=== PATIENT | female | born 1995 | race Two or more races ===

== ENCOUNTER 2016-11-16 12:14 | Outpatient (CLI) | payer SELFPAY ==
[2016-11-16 13:24] LABS: APPEARANCE,URINE CLEAR; BILIRUBIN,URINE NEGATIVE (NEGATIVE); GLUCOSE, URINE NEGATIVE (NEGATIVE); KETONES,URINE NEGATIVE (NEGATIVE); LEUKOCYTE ESTERASE,URINE NEGATIVE (NEGATIVE); NITRITE,URINE NEGATIVE (NEGATIVE); PROTEIN,URINE NEGATIVE (NEGATIVE); URINE SPECIFIC GRAVITY 1.004; UROBILINOGEN,URINE NEGATIVE mg/dL (<2.0)
[2016-11-16 13:26] LABS: AMNISURE (ROM) NEGATIVE (NEGATIVE)
[2016-11-16 13:40] LABS: URINE BARBITURATES SCREEN NEGATIVE; URINE METHADONE SCREEN NEGATIVE; URINE PHENCYCLIDINE SCREEN NEGATIVE
== END 2016-11-16 13:40 | disposition home or self-care (01) ==
LOC: LC 12:14
PROVIDERS: ATTEND Obstetrics & Gynecology
PROC: 4A1HXCZ Monitoring of Products of Conception, Cardiac Rate, External Approach (ICD-10-PCS; principal; 2016-11-16)
DX: O47.02 False labor before 37 completed weeks of gestation, second trimester (principal); O98.812 Other maternal infectious and parasitic diseases complicating pregnancy, second trimester; B37.9 Candidiasis, unspecified; Z3A.27 27 weeks gestation of pregnancy
CPT/HCPCS: 59899; 84112; 87210; 81001; 80307; Q0114

== ENCOUNTER 2017-01-29 12:30 | Outpatient (CLI) | payer MEDICAID ==
[2017-01-29 13:26] LABS: APPEARANCE,URINE CLEAR; BILIRUBIN,URINE NEGATIVE (NEGATIVE); GLUCOSE, URINE NEGATIVE (NEGATIVE); KETONES,URINE NEGATIVE (NEGATIVE); LEUKOCYTE ESTERASE,URINE NEGATIVE (NEGATIVE); NITRITE,URINE NEGATIVE (NEGATIVE); PROTEIN,URINE NEGATIVE (NEGATIVE); URINE SPECIFIC GRAVITY 1.008; UROBILINOGEN,URINE NEGATIVE mg/dL (<2.0)
[2017-01-29 13:50] LABS: URINE BARBITURATES SCREEN NEGATIVE; URINE METHADONE SCREEN NEGATIVE; URINE OPIATES LOW NEGATIVE; URINE PHENCYCLIDINE SCREEN NEGATIVE
--- NOTE | 2017-01-29 15:16 | Non Stress Test Report ---
Non Stress Test Datetime Report Generated by CPN: 01/29/2017 15:16 DEMOGRAPHIC EGA NST: 37.4 INDICATION Indication for Study: Other Indication for Study (NST) Other: Labor check MONITORING Monitor Explained: Monitor Explained; Test Explained; Patient Verbalized Understanding Time on Monitor: 01/29/2017 14:28 Time off Monitor: 01/29/2017 15:05 NST Duration: 37 NST INTERVENTIONS NST Interventions: PO Hydration Physician Notified NST: Dr. Cabrera BABY A: [id number] BABY A Movement : Present Contraction Frequency : Occasional FHR Baseline : 130 Accelerations : 15X15 Decelerations : None Variability : Moderate 6-25bpm NST Review: Meets Criteria for Reactive NST NST Review and Verified By : Arnol Zheng RN NST Results: Reactive NST REPORT Report Trigger: Send Report
--- NOTE | 2017-02-04 10:36 | L&D General Admission ---
General Admit Datetime Report Generated by CPN: 02/04/2017 10:36 INFORMATION Patient Age: 21 (11/16/2016 12:14:QS system process) EDC: 02/15/2017 00:00 (11/16/2016 12:45:Garett Mansfield RN) : 2 (11/16/2016 12:45:Vandana Epps RN) Para: 1 (11/16/2016 12:45:Vandana Epps RN) Term: 1 (11/16/2016 12:45:Vandana Epps RN) : 0 (11/16/2016 12:45:Vandana Epps RN) Spontaneous Abortions: 0 (11/16/2016 12:45:Vandana Epps RN) Induced Abortions: 0 (11/16/2016 12:45:Vandana Epps RN) Livin (11/16/2016 12:45:Vandana Epps RN) Cesareans: 0 (11/16/2016 12:45:Vandana Epps RN) VBACs: 0 (11/16/2016 12:45:Vandana Epps RN) Ectopic: 0 (11/16/2016 12:45:Vandana Epps RN) Multiple Births: 0 (11/16/2016 12:45:Vandana Epps RN) Baby, Number in Womb: 1 (11/16/2016 12:45:Vandana Epps RN) CARE Primary Compound Worker: [facility] (11/16/2016 12:45:Garett Mansfield RN) ALLERGIES Medication Allergy: No (11/16/2016 12:45:Garett Mansfield RN) Medication Allergies: No Known Allergies (11/16/2016) (11/16/2016 12:45:QS system process) Medication Allergies: No Known Allergies (05/25/2015) (11/16/2016 12:14:QS system process) Latex Allergy: No Latex Allergies (11/16/2016 12:45:Garett Mansfield RN) Food Allergies: None (11/16/2016 12:45:Vandana Epps RN) Environmental Allergies: None (11/16/2016 12:45:Vandana Epps RN) COMMUNICATION Primary Language: Syrian (11/16/2016 12:45:Garett Mansfield RN) Medical Tx Preferred Language: Syrian (11/16/2016 12:45:Vandana Epps RN) Citizen Of [place] Communication Ability: No understanding, CHARGE ENTRY SPECIALIST needed (11/16/2016 12:45:Vandana pEps RN) Communication Barrier(s): Language barrier (11/16/2016 12:45:Vandana Epps RN) DEMOGRAPHICS Address: [address] [place] [address] (11/16/2016 12:14:QS system process) Zipcode: [id number] (11/16/2016 12:14:QS system process) Home (11/16/2016 12:14:QS system process) SSN: [id number] (11/16/2016 12:14:QS system process) Next of Kin Name: NUBIA LUCAS (11/16/2016 12:14:QS system process) Next of Kin (11/16/2016 12:14:QS system process) Next of Kin Relationship: OR (11/16/2016 12:14:QS system process) Date of : 1995 (11/16/2016 12:14:QS system process) Marital Status: Single (11/16/2016 12:14:QS system process) Sex: Female (11/16/2016 12:14:QS system process) Race: Other (11/16/2016 12:14:QS system process) Ethnicity: or (11/16/2016 12:14:QS system process) Church: None (11/16/2016 12:14:QS system process) DRUG AND ALCOHOL USE Alcohol: No (11/16/2016 12:45:Vandana Epps RN) Cigarettes: Never Smoker. [id number] (11/16/2016 12:45:Vandana Epps RN) Marijuana: No (11/16/2016 12:45:Vandana Epps RN) Cocaine: No (11/16/2016 12:45:Vandana Epps RN) Other Illicit Drugs: No (11/16/2016 12:45:Vandana Epps RN) VACCINE HISTORY Influenza Vaccine: Yes (11/16/2016 12:45:Vandana Epps RN) Pneumococcal Vaccine: No (11/16/2016 12:45:Vandana Epps RN) Tetanus Vaccine: Uncertain (11/16/2016 12:45:Vandana Epps RN) Tdap Vaccine: Uncertain (11/16/2016 12:45:Vandana Epps RN) Hepatitis B Vaccine: Uncertain (11/16/2016 12:45:Vandana Epps RN) [place] Worker: [facility] (11/16/2016 12:45:Vandana Epps RN) Feeding Preference: Both (11/16/2016 12:45:Vandana Epps RN) Benefit of Breast Feed Discussed: Yes (11/16/2016 12:45:Vandana Epps RN) Circumcision: No (11/16/2016 12:45:Vandana Epps RN) Classes Attended: No (11/16/2016 12:45:Vandana Epps RN) Tubal Ligation: No (11/16/2016 12:45:Vandana Epps RN) Tubal Authorization Signed: N/A (11/16/2016 12:45:Vandana Epps RN) Consent: N/A (11/16/2016 12:45:Vandana Epps RN) Consent Signed: N/A (11/16/2016 12:45:Vandana Epps RN) Pain Management Plans: Epidural (11/16/2016 12:45:Vandana Epps RN) Plans for Labor and Delivery: None (11/16/2016 12:45:Vandana Epps RN) Support Person: Michel Shannon (11/16/2016 12:45:Vandana Epps RN) Support Person Relationship: Significant Other (11/16/2016 12:45:Vandana Epps RN) Cultural/Spritual Practice: No (11/16/2016 12:45:Vandana Epps RN) Spir/Cult Dietary Needs: No (11/16/2016 12:45:Vandana Epps RN) LIVING SITUATION/DISCHARGE PLAN Living Arrangements: House (11/16/2016 12:45:Vandana Epps RN) Adequate Access to:: Electric; Heat; Refrigeration; Plumbing/Running water; Phone; Transportation (11/16/2016 12:45:Vandana Epps RN) WIC Program: Yes (11/16/2016 12:45:Vandana Epps RN) Discharge Electronic Engineering Draftsperson Person: Michel Shannon (11/16/2016 12:45:Vandana Epps RN) Person to Help after Discharge: Michel Shannon (11/16/2016 12:45:Vandana Epps RN) Currently Using Commun Resources: Yes (11/16/2016 12:45:Vandana Epps RN) Specify Current Resource Used: Medicaid (11/16/2016 12:45:Vandana Epps RN) Outside Agency/Lost Charge Card Clerk: Yes (11/16/2016 12:45:Vandana Epps RN) Specify Agency/ Lost Charge Card Clerk: unsure (11/16/2016 12:45:Vandana Epps RN) Car Seat for Discharge: Yes (11/16/2016 12:45:Vandana Epps RN) Adoption Requested: No (11/16/2016 12:45:Vandana Epps RN) Pt Contact w/infant Post : N/A (11/16/2016 12:45:Vandana Epps RN) LABS Blood Type: B Positive (11/16/2016 12:45:Vandana Epps RN) Gonorrhea: Negative (11/16/2016 12:45:Vandana Epps RN) Chlamydia: Negative (11/16/2016 12:45:Vandana Epps RN) RPR/VDRL: Nonreactive (11/16/2016 12:45:Vandana Epps RN) HIV Exposure Test: Negative (11/16/2016 12:45:Vandana Epps RN) Hepatitis B: Negative (11/16/2016 12:45:Vandana Epps RN) Rubella: Immune (11/16/2016 12:45:Vandana Epps RN) Varicella: Non Susceptible (11/16/2016 12:45:Vandana Epps RN) OB/PREVIOUS HISTORY History of Previous : No (11/16/2016 12:45:Vandana Epps RN) History of Gestational Diabetes: No (11/16/2016 12:45:Vandana Epps RN) History of PIH: No (11/16/2016 12:45:Vandana Epps RN) History of Incompetent Cervix: No (11/16/2016 12:45:Vandana Epps RN) History of Placenta Previa/Abrup: No (11/16/2016 12:45:Vandana Epps RN) History of Macrosomia: No (11/16/2016 12:45:Vandana Epps RN) History of IUGR: No (11/16/2016 12:45:Vandana Epps RN) History of Hemorrhage: No (11/16/2016 12:45:Vandana Epps RN) History of Loss/Stillborn: Unknown (11/16/2016 12:45:Vandana Epps RN) History of : No (11/16/2016 12:45:Vandana Epps RN) History of D (Rh) Sensitization: No (11/16/2016 12:45:Vandana Epps RN) History Recurrent Loss/Stillborn: Unknown (11/16/2016 12:45:Vandana Epps RN) History Depression/PP Depression: No (11/16/2016 12:45:Vandana Epps RN) History of Uterine Anomaly/TERELL: No (11/16/2016 12:45:Vandana Epps RN) History of Infertility: No (11/16/2016 12:45:Vandana Epps RN) History of ART Treatment: No (11/16/2016 12:45:Vandana Epps RN) History of TERELL: No (11/16/2016 12:45:Vandana Epps RN) MEDICAL HISTORY Med Hx Diabetes: No (11/16/2016 12:45:Vandana Epps RN) Med Hx Hypertension: No (11/16/2016 12:45:Vandana Epps RN) Med Hx Heart Disease: No (11/16/2016 12:45:Vandana Epps RN) Med Hx Autoimmune Disorder: No (11/16/2016 12:45:Vandana Epps RN) Med Hx Kidney Disease/UTI: No (11/16/2016 12:45:Vandana Epps RN) Med Hx Neurologic/Epilepsy: No (11/16/2016 12:45:Vandana Epps RN) Med Hx Psychiatric Disorders: No (11/16/2016 12:45:Vandana Epps RN) Med Hx Hepatitis/Liver Disease: No (11/16/2016 12:45:Vandana Epps RN) Med Hx Varicosities/Phlebitis: No (11/16/2016 12:45:Vandana Epps RN) Med Hx Thyroid Dysfunction: No (11/16/2016 12:45:Vandana Epps RN) Med Hx Trauma/Violence: No (11/16/2016 12:45:Vandana Epps RN) Med Hx Blood Transfusion: No (11/16/2016 12:45:Vandana Epps RN) Med Hx Pulmonary (Asthma,TB): No (11/16/2016 12:45:Vandana Epps RN) Med Hx FLASK CLEANER Surgery: No (11/16/2016 12:45:Vandana Epps RN) Med Hx Hospitalization/Surgery: No (11/16/2016 12:45:Vandana Epps RN) Med Hx Anesthetic Complications: No (11/16/2016 12:45:Vandana Epps RN) Med Hx Abnormal Pap Smear: No (11/16/2016 12:45:Vandana Epps RN) Other Medical Diseases: No (11/16/2016 12:45:Vandana Epps RN) Med Hx Significant Family Hx: No (11/16/2016 12:45:Vandana Epps RN) INFECTIOUS HISTORY Inf Hx Gonorrhea: No (11/16/2016 12:45:Vandana Epps RN) Inf Hx Chlamydia: No (11/16/2016 12:45:Vandana Epps RN) Inf Hx Syphilis: No (11/16/2016 12:45:Vandana Epps RN) Inf Hx HIV/AIDS: No (11/16/2016 12:45:Vandana Epps RN) Inf Hx Human Papilloma Virus: No (11/16/2016 12:45:Vandana Epps RN) Inf Hx Pt/Partner Genital Herpes: No (11/16/2016 12:45:Vandana Epps RN) Inf Hx Tuberculosis/Exposure: No (11/16/2016 12:45:Vandana Epps RN) Inf Hx Hepatitis B,C: No (11/16/2016 12:45:Vandana Epps RN) Inf Hx Rash or Viral Illness: No (11/16/2016 12:45:Vandana Epps RN) GENETIC HISTORY Gen Hx Age >=35 at K[facility]: Unknown (11/16/2016 12:45:Vandana Epps RN) Gen Hx Thalassemia: Unknown (11/16/2016 12:45:Vandana Epps RN) Gen Hx Neural Tube Defect: Unknown (11/16/2016 12:45:Vandana Epps RN) Gen Hx Down's Syndrome: Unknown (11/16/2016 12:45:Vandana Epps RN) Gen Hx Clement-Sachs: Unknown (11/16/2016 12:45:Vandana Epps RN) Gen Hx Lawrence: Unknown (11/16/2016 12:45:Vandana Epps RN) Gen Hx Familial Dysautonomia: Unknown (11/16/2016 12:45:Vandana Epps RN) Gen Hx Sickle Cell Disease/Trait: Unknown (11/16/2016 12:45:Vandana Epps RN) Gen Hx Hemophilia/Blood Disorder: Unknown (11/16/2016 12:45:Vandana Epps RN) Gen Hx Muscular Dystrophy: Unknown (11/16/2016 12:45:Vandana Epps RN) Gen Hx Cystic Fibrosis: Unknown (11/16/2016 12:45:Vadnana Epps RN) Gen Hx Huntingtons Chorea: Unknown (11/16/2016 12:45:Vandana Epps RN) Gen Hx Mental Retardation/Autism: Unknown (11/16/2016 12:45:Vandana Epps RN) Gen Hx Tested for Fragile X: Unknown (11/16/2016 12:45:Vandana Epps RN) Gen Hx Other Inher/Chromosomal: Unknown (11/16/2016 12:45:Vandana Epps RN) Gen Hx Maternal Metabolic DO: Unknown (11/16/2016 12:45:Vandana Epps RN) Gen Hx Pt Father or FOB Defect: Unknown (11/16/2016 12:45:Vandana Epps RN) Gen Hx Other Genetic History: Unknown (11/16/2016 12:45:Vandana Epps RN)
--- NOTE | 2017-02-04 10:36 | L&D Flow Sheet ---
LD Flowsheet Datetime Report Generated by CPN: 02/04/2017 10:36 Datetime: 01/29/2017 15:05 Comments: Monitors removed. Pt. dressing. (Vandana Epps RN) Datetime: 01/29/2017 15:04 Monitor Mode: External; Palpation (Vandana Epps RN) Frequency (min): Occasional (Vandana Epps RN) Quality: Mild (Vandana Epps RN) Duration (sec): 50-70 (Vandana Epps RN) Resting Tone (Palpate): Relaxed (Vandana Epps RN) Monitor Mode: External US (Vandana Epps RN) FHR Baseline Rate : 135 (Vandana Epps RN) Variability: Moderate 6-25 bpm (Vandana Epps RN) Accelerations: 15X15 (Vandana Epps RN) Decelerations: None (Vandana Epps RN) Pain Scale: 3 (Vandana Epps RN) Pain Presence: Intermittent (Vandana Epps RN) Pain Type: Contraction (Vandana Epps RN) Pain Location: Abdomen; Back (Vandana Epps RN) Pain Goal: 0 (Vandana Epps RN) Pain Relief Measures: Comfort Measures (Vandana Epps RN) Patient Care Comments: Pt. discharged home per Dr. Cabrera. See D/C summary. (Vandana Epps RN) Datetime: 01/29/2017 14:59 NBP Sys/Lyssa/Mean (mmHg): 116 (QS system process) : 55 (QS system process) : 79 (QS system process) Pulse: 82 (QS system process) Respirations: 16 (Vandana Epps RN) Datetime: 01/29/2017 14:46 Communication: Provider Orders Received; Call/Page Placed to Provider (Vandana Epps RN) Provider Notified (Name): Dr. Cabrera (Vandana Epps RN) Communication Comments: Notified of fhts, ctx, labs, v/s, SVE. Received orders to D/C home with reactive NST. (Vandana Epps RN) Datetime: 01/29/2017 14:29 NBP Sys/Lyssa/Mean (mmHg): 112 (QS system process) : 58 (QS system process) : 82 (QS system process) Pulse: 73 (QS system process) Dilatation (cm): 4.0 (Vandana Epps RN) Effacement (%): 70 (Vandana Epps RN) Station: -2 (Vandana Epps RN) Exam by: Justyn Epps RN (Vandana Epps RN) Datetime: 01/29/2017 13:25 Monitor Mode: External; Palpation (Vandana Epps RN) Frequency (min): 2-5 (Vandana Epps, RN) Quality: Mild (Vandana Epps, RN) Duration (sec): 60-90 (Vandana Epps, RN) Resting Tone (Palpate): Relaxed (Vandana Epps, RN) Monitor Mode: External US (Vandana Epps, RN) FHR Baseline Rate : 140 (Vandana Epps, RN) Variability: Moderate 6-25 bpm (Vandana Epps, RN) Accelerations: 15X15 (Vandana Epps, RN) Decelerations: None (Vandana Epps, RN) Datetime: 01/29/2017 13:11 Frequency (min): q 5 min (Vandana Epps, RN) Vaginal Bleeding: None (Vandana Epps, RN) Level of Consciousness: Fully Conscious (Vandana Epps, RN) DTR's/Clonus: DTRs 2+; No Clonus (Vandana Epps, RN) Headache: Denies (Vandana Epps, RN) Breath Sounds, Left: Clear and Equal (Vandana Epps, RN) Breath Sounds, Right: Clear and Equal (Vandana Epps, RN) Nausea/Vomiting: Denies (Vandana Epps, RN) RUQ Epigastric Pain: Denies (Vandana Epps, RN) Datetime: 01/29/2017 12:59 Dilatation (cm): 4.0 (Vandana Epps, RN) Effacement (%): 70 (Vandana Epps, RN) Station: -2 (Vandana Epps, RN) Exam by: T. Hill, SN (Vandana Epps, RN) Datetime: 01/29/2017 12:57 NBP Sys/Lyssa/Mean (mmHg): 130 (QS system process) : 76 (QS system process) : 90 (QS system process) Pulse: 83 (QS system process) Respirations: 16 (Vandana Epps, RN) Datetime: 01/29/2017 12:56 Patient Position/Activity: Left Lateral (Vandana Epps, RN) Datetime: 01/29/2017 12:55 Comments: Monitors applied, explained to pt. (Vandana Epps RN) Datetime: 01/29/2017 12:54 Temperature (F): 98.3 (Vandana Epps RN) Datetime: 01/29/2017 12:53 Stage of : Antepartum (Vandana Epps RN) Pain Scale: 3 (Vandana Epps RN) Pain Presence: Intermittent (Vandana Epps RN) Pain Type: Contraction (Vandana Epps RN) Pain Location: Abdomen; Back (Vandana Epps RN) Pain Goal: 0 (Vandana Epps RN) Pain Relief Measures: Comfort Measures (Vandana Epps RN)
--- NOTE | 2017-02-04 10:37 | Antepartum Discharge Summary ---
Antepartum DC Datetime Report Generated by CPN: 02/04/2017 10:37 DIET/ACTIVITY/RESTRICTIONS Diet: Regular (01/29/2017 15:19:Vandana Epps RN) Activity: Normal Activity (01/29/2017 15:19:Vandana Epps, RN) TEACHING/INSTRUCTIONS/REFERRALS Instructions Given To: Patient (01/29/2017 15:19:Vandana Epps RN) Instructions Understood: Patient Verbalized Understanding; Support Person Verbalized Understanding (01/29/2017 15:19:Vandana Epps RN) Referrals: None (01/29/2017 15:19:Vandana Epps RN) Educational Materials- Other: Term labor care notes reviewed. (01/29/2017 15:19:Vandana Epps RN) DISCHARGE INFORMATION Discharged AMA: No (01/29/2017 15:19:Vandana Epps RN) Discharge Date/Time: 01/29/2017 15:10 (01/29/2017 15:19:Vandana Epps RN) Discharged To: Home (01/29/2017 15:19:Vandana Epps RN) Discharge Provider Name: Dr. Cabrera (01/29/2017 15:19:Vandana Epps RN) Accompanied By: mother (01/29/2017 15:19:Vandana Epps RN) Discharge Method: Ambulatory (01/29/2017 15:19:Vandana Epps RN) Condition: Stable (01/29/2017 15:19:Vandana Epps RN) FOLLOW UP INFORMATION Follow Up With: [facility] (01/29/2017 15:19:Vandana Epps RN) Follow Up On: As Scheduled (01/29/2017 15:19:Vandana Epps RN) Follow Up Phone Number: [facility] - (01/29/2017 15:19:Vandana Epps RN)
--- NOTE | 2017-02-04 10:38 | L&D Discharge Summary ---
OB Discharge Summary Datetime Report Generated by CPN: 02/04/2017 10:38 DISCHARGE DIAGNOSIS Diagnosis/Symptoms: False Labor Diagnoses/Symptoms Other: Yeast infection Gestation: 37.5 Number of Babies in Womb: 1 Parity: 1 DIET/ACTIVITY/RESTRICTIONS Diet: Regular Activity: Normal Activity TEACHING/INSTRUCTIONS/REFERRALS Instructions Given To: Patient Instructions Understood: Patient Verbalized Understanding; Support Person Verbalized Understanding Referrals: None Educational Materials- Other: Term labor care notes reviewed. DISCHARGE INFORMATION Discharged AMA: No Discharge Date/Time: 01/29/2017 15:10 Discharged To: Home Discharge Provider Name: Dr. Cabrera Accompanied By: mother Discharge Method: Ambulatory Condition: Stable FOLLOW UP INFORMATION Follow Up With: [facility] Follow Up On: As Scheduled Follow Up Phone Number: [facility] - Comments: Pt discharged home for yeast infection, false labor. Pt ambulates without difficulty, no distress noted, shot examiner agrees with discharge. No complaints, states understanding of s/s to report, when to return to hospital for evaluation, to keep scheduled appointments. GENERAL INSTR-CALL PROVIDER IF: Contractions: Contractions or cramps become more frequent than 8 in one hour or 4 in 20 minutes; Regular painful contractions every 5 minutes or less for one hour. Time your contractions from the beginning of one to the beginning of the next Pressure: Pressure in your vagina or lower abdomen that may feel like the baby is pushing down Period Like Cramps: Period-like cramps or low dull backache that may come and go Cramps/Diarrhea: Abdominal cramps that may be accompanied by diarrhea Gush of Fluid/Blood: Gush of fluid or blood from your vagina (it is normal to have spotting after vaginal exam or intercourse) Vaginal Discharge: Change in the type or amount of vaginal discharge Decreased Movement: Your baby is not moving as much as usual- 4 movements in 1 hour after drinking and resting on side Temperature: Temperature greater than 100.0(F) orally
== END 2017-01-29 15:10 | disposition home or self-care (01) ==
LOC: LC 12:30
PROVIDERS: ATTEND Obstetrics & Gynecology
PROC: 4A1HXCZ Monitoring of Products of Conception, Cardiac Rate, External Approach (ICD-10-PCS; principal; 2017-01-29)
DX: O47.1 False labor at or after 37 completed weeks of gestation (principal); Z3A.37 37 weeks gestation of pregnancy
CPT/HCPCS: 59025; 80307; 81005

== ENCOUNTER 2017-01-30 03:28 | Inpatient (IN) | payer MEDICAID ==
[2017-01-30] MEDS ORDERED: RINGERS SOLUTION,LACTATED 1,000 ML IV PRN (03:55)
[2017-01-30] MEDS ORDERED: LIDOCAINE 1% INJ-PF (10 MG/ML) 30 ML SDV ONE (03:55)
[2017-01-30] MEDS ORDERED: OXYTOCIN/NORMAL SALINE 20 UNIT/1,000 ML RTUINJ ONE (03:55)
[2017-01-30] MEDS ORDERED: MISOPROSTOL 0.2 MG TABLET ONE (03:55)
[2017-01-30 04:01] LABS: APPEARANCE,URINE SLIGHTLY-CLOUDY; BILIRUBIN,URINE NEGATIVE (NEGATIVE); GLUCOSE, URINE NEGATIVE (NEGATIVE); KETONES,URINE 20 mg/dL (NEGATIVE); LEUKOCYTE ESTERASE,URINE NEGATIVE (NEGATIVE); NITRITE,URINE NEGATIVE (NEGATIVE); PROTEIN,URINE NEGATIVE (NEGATIVE); URINE SPECIFIC GRAVITY 1.012; UROBILINOGEN,URINE NEGATIVE mg/dL (<2.0)
[2017-01-30] MEDS ORDERED: OXYTOCIN 10 UNIT/ML VIAL ONE (04:02)
[2017-01-30] MEDS ORDERED: MAGNESIUM HYDROXIDE SUSP 30 ML UDCUP PO PRN (04:06)
[2017-01-30] MEDS ORDERED: BENZOCAINE/MENTHOL AEROSOL SPRAY 56 ML TOP PRN (04:06)
[2017-01-30] MEDS ORDERED: PROMETHAZINE HCL 25 MG SUPP.RECT PR PRN (04:06)
[2017-01-30] MEDS ORDERED: ACETAMINOPHEN 650 MG SUPP.RECT PR PRN (04:06)
[2017-01-30] MEDS ORDERED: PSEUDOEPHEDRINE HCL 30 MG TABLET PO PRN (04:06)
[2017-01-30] MEDS ORDERED: MEASLES,MUMPS&RUBELLA VACC/PF 0.5 ML VIAL SUBCUT PRN (04:06)
[2017-01-30] MEDS ORDERED: ZOLPIDEM TARTRATE 5 MG TABLET PO PRN (04:06)
[2017-01-30] MEDS ORDERED: DIBUCAINE 1% OINTMENT 28 GM TP PRN (04:06)
[2017-01-30] MEDS ORDERED: NA PHOS,M-B/NA PHOS,DI-BA (ADULT) 133 ML ENEMA PR PRN (04:06)
[2017-01-30] MEDS ORDERED: PROMETHAZINE HCL 25 MG TABLET PO PRN (04:06)
[2017-01-30] MEDS ORDERED: ACETAMINOPHEN WITH CODEINE #3 TABLET PO PRN ×2 (04:06)
[2017-01-30] MEDS ORDERED: OXYTOCIN/NORMAL SALINE 1,000 ML IV PRN (04:06)
[2017-01-30] MEDS ORDERED: PROMETHAZINE HCL INJ 25 MG/1 ML VIAL IV PRN (04:06)
[2017-01-30] MEDS ORDERED: GLYCERIN/WITCH HAZEL LEAF 1 EACH MED..PAD TP PRN (04:06)
[2017-01-30] MEDS ORDERED: DIPH/PERTUSS(ACELL)/TETANUS VAC/PF 0.5 ML SYR (>=10YO) IM PRN (04:06)
[2017-01-30] MEDS ORDERED: DIPHENHYDRAMINE HCL 25 MG CAPSULE PO PRN (04:06)
[2017-01-30 04:15] LABS: URINE BARBITURATES SCREEN NEGATIVE; URINE METHADONE SCREEN NEGATIVE; URINE OPIATES LOW NEGATIVE; URINE PHENCYCLIDINE SCREEN NEGATIVE
[2017-01-30 04:16] LABS: ABSOLUTE BASOPHILS # (AUTO) 0.1 10^3/uL (0.0-0.2); ABSOLUTE MONOCYTES (AUTO) 1.1 10^3/uL (0.1-1.4); ABSOLUTE NEUT (AUTO) 13.6 10^3/uL (1.7-8.2); BASOPHILS % (AUTO) 0.4 % (0-2); EOSINOPHILS % (AUTO) 0.2 % (0-6); HEMATOCRIT 33.1 % (36.0-47.0); HEMOGLOBIN 11.4 g/dL (12.0-15.5); HGB HCT DIFFERENCE 1.1; LYMPHOCYTES % (AUTO) 11.9 % (13-45); MEAN CORPUSCULAR HEMOGLOBIN 29.7 pg (27.0-33.4); MEAN CORPUSCULAR HGB CONC 34.4 g/dL (32.0-36.0); MEAN CORPUSCULAR VOLUME 86 fl (80-97); MONOCYTES % (AUTO) 6.5 % (3-13); RED BLOOD COUNT 3.83 10^6/uL (3.72-5.28); RED CELL DISTRIBUTION WIDTH 12.7 % (11.5-14.0); WHITE BLOOD COUNT 16.8 10^3/uL (4.0-10.5)
[2017-01-30] MEDS ORDERED: PENICILLIN G POTASSIUM 5,000,000 UNIT in DEXTROSE 5%-WATER 100 ML IV ONE (04:41)
[2017-01-30] MEDS ORDERED: PENICILLIN G-K 5 MILLION UNIT VIAL ONE (04:41)
[2017-01-30] MEDS ORDERED: BUPIVACAINE HCL 0.25 % INJ/PF (2.5 MG/1 ML) 30 ML VIAL ONE (04:58)
[2017-01-30] MEDS ORDERED: FENTANYL CITRATE INJ/PF 100 MCG/2 ML AMPUL ONE (04:58)
[2017-01-30] MEDS ORDERED: FENTANYL/BUPIVACAINE/NS/PF 200 MCG/100 ML RTUINJ EPI ONE (04:58)
[2017-01-30] MEDS ORDERED: EPHEDRINE SULFATE INJ 50 MG/1 ML AMPULE ONE (04:58)
[2017-01-30] MEDS ORDERED: PHENYLEPHRINE HCL INJ/PF 10 MG/1 ML SDV ONE (04:58)
--- NOTE | 2017-01-30 06:57 | Delivery Summary ---
Del Sum A-C Datetime Report Generated by CPN: 01/30/2017 06:56 ADMISSION DATA Chief Complaint: Uterine Contractions Indication for Induction: Not Applicable Admission Impression: Active Labor Admit Provider Comments: efw 7-8 lbs DELIVERY PERSONNEL Delivery Doctor:: Estelita Cabrera MD Labor and Delivery Nurse:: Arlin Bauer, division controller Nurse:: ABHIJEET Benoit/MERCHANDISING EXECUTION ASSOCIATE: Judi Gardner CNA MATERNAL INFORMATION Delivery Anesthesia: Epidural Medications After Delivery: Pitocin Bolus-Please Comment Meds After Delivery Comment: Pitocin 20 units/1000 mL Maternal Complications: Precipitous Labor (<3hrs) LABOR SUMMARY EDC: 02/15/2017 00:00 No. Babies in Womb: 1 Attempted: No Labor Anesthesia: None LABOR INFORMATION Reason for Induction: Not Applicable Onset of Labor: 01/30/2017 03:49 Complete Dilatation: 01/30/2017 05:29 Oxytocin: N/A Group B Beta Strep: unknown Antibiotics # of Doses: 1 Antibiotics Time of Last Dose: 0451 Name of Antibiotic Given: PCN Steroids Given: None Reason Steroids Not Administered: Not Applicable MEMBRANES Membranes Rupture Method: Artificial Rupture of Membranes: 01/30/2017 05:29 Length of Rupture (hr): 0.37 Amniotic Fluid Color: Clear Amniotic Fluid Amount: Small Amniotic Fluid Odor: Normal STAGES OF LABOR Stage 1 hr: 1 Stage 1 min: 40 Stage 2 hr: 0 Stage 2 min: 22 Stage 3 hr: 0 Stage 3 min: 5 Total Time in Labor hr: 2 Total Time in Labor min: 7 VAGINAL DELIVERY Episiotomy: None Laceration Extension: N/A Laceration Type: None Laceration Repair: Not Applicable Sponge Count Correct: N/A; Vaginal Sweep Performed Sharps Count Correct: N/A CSECTION DELIVERY Primary Indication: N/A Secondary Indication: N/A CSection Incidence: N/A Labor: N/A Elective: N/A CSection Incision: N/A BABY A INFORMATION Infant Delivery Date/Time: 01/30/2017 05:51 Method of Delivery: Vaginal Born in Route : No : N/A Forceps: N/A Vacuum Extraction: N/A Shoulder Dystocia : No PRESENTATION/POSITION BABY A Presentation: Cephalic Cephalic Presentation: Vertex Vertex Position: Right Occipital Anterior Breech Presentation: N/A PLACENTA INFORMATION BABY A Placenta Delivery Time : 01/30/2017 05:56 Placenta Method of Delivery: Spontaneous Placenta Status: Delivered SCORES BABY A Heart Rate 1 min: >100 bpm Resp Effort 1 min: Good Cry Reflex Irritability 1 min: Cough or Sneeze or Pulls Away Muscle Tone 1 min: Active Motion Color 1 min: Blue/Pale Resuscitation Effort 1 min: Tactile Stimulation SCORE 1 MIN: 8 Heart Rate 5 min: >100 bpm Resp Effort 5 min: Good Cry Reflex Irritability 5 min: Cough or Sneeze or Pulls Away Muscle Tone 5 min: Active Motion Color 5 min: Body [place], Extremities Blue Resuscitation Effort 5 min: Tactile Stimulation SCORE 5 MIN: 9 INFANT INFORMATION BABY A Gestational Age at Delivery: 37.5 Gestational Status: Early Term- 37- 38.6 Weeks Outcome : Liveborn Condition : Stable Infant Sex: Male IDENTIFICATION BABY A Infant Verification Date/Time: 01/30/2017 06:03 ID Band Number: [id number] Mother's Name Verified: Yes RN Verifying : Romina Molina RN Additional Verifying Personnel: Bruce LegalZoomJosie RN WEIGHT/LENGTH BABY A Birthweight (gm): 2590 Weight (lb): 5 Infant Weight (oz): 11 Length (in): 18.00 Infant Length (cm): 45.72 CORD INFORMATION BABY A No. Cord Vessels: 3 Nuchal Cord : N/A Cord Blood Taken: Yes-For Storage (Mom's Blood type +) Suction: None ASSESSMENT BABY A Complications: None Physical Findings at Delivery: Within Normal Limits Respirations: Appears Normal Skin to Skin: Yes Skin to Skin Time (min): 45 Cage Operator/ALS Called : No Infant Care By: Gavin Barrera RN Transferred To: Remains with Mother SIGNATURES Signature: with User ID: [email or web address]
[2017-01-30] MEDS ORDERED: AMPICILLIN SOD INJ 1 GM VIAL ONE (07:32)
[2017-01-30] MEDS: IBUPROFEN 800 MG TABLET PO SCH ×3 (07:41→21:42)
[2017-01-30] MEDS: FERROUS SULFATE 325 MG TABLET PO SCH ×2 (07:51→17:24)
[2017-01-30] MEDS ORDERED: FERROUS SULFATE 325 MG TABLET PO ONE (07:52)
--- NOTE | 2017-01-30 08:01 | L&D Flow Sheet ---
LD Flowsheet Datetime Report Generated by CPN: 01/30/2017 08:00 Datetime: 01/30/2017 07:45 NBP Sys/Lyssa/Mean (mmHg): 107 (QS system process) : 58 (QS system process) : 77 (QS system process) Pulse: 56 (QS system process) Datetime: 01/30/2017 07:30 NBP Sys/Lyssa/Mean (mmHg): 110 (QS system process) : 56 (QS system process) : 77 (QS system process) Pulse: 53 (QS system process) Respirations: 16 (Bhavya Chris, RN) Datetime: 01/30/2017 07:18 NBP Sys/Lyssa/Mean (mmHg): 116 (QS system process) : 63 (QS system process) : 78 (QS system process) Pulse: 68 (QS system process) Respirations: 16 (Bhavya Perez, RN) Pain Scale: 0 (Bhavya Perez, RN) Pain Presence: None/Denies (Bhavya Perez, RN) Pain Type: N/A (Bhavya Perez, RN) Datetime: 01/30/2017 07:14 Communication Comments: Report to FrankieJosie Chris RN. Care relinquished at this time. (Arlin Bauer RN) Datetime: 01/30/2017 07:00 Stage of : Recovery (Arlin Ring, RN) Pain Scale: 1 (Arlin Ring, RN) Pain Presence: Intermittent (Arlin Ring, RN) Pain Location: Abdomen (Arlin Ring, RN) Pain Goal: 1 (Arlin Ring, RN) Pain Relief Measures: Comfort Measures (Arlin Ring, RN) Datetime: 01/30/2017 06:45 NBP Sys/Lyssa/Mean (mmHg): 107 (QS system process) : 54 (QS system process) : 78 (QS system process) Pulse: 65 (QS system process) Pain Scale: 1 (Arlin Ring, RN) Pain Presence: Intermittent (Arlin Ring, RN) Pain Type: Cramping (Arlin Ring, RN) Pain Location: Abdomen (Arlin Ring, RN) Pain Goal: 1 (Arlin Ring, RN) Pain Relief Measures: Comfort Measures (Arlin Ring, RN) Datetime: 01/30/2017 06:30 Stage of : Recovery (Arlin Ring, RN) NBP Sys/Lyssa/Mean (mmHg): 115 (QS system process) : 57 (QS system process) : 80 (QS system process) Pulse: 71 (QS system process) Respirations: 18 (Arlin Ring, RN) Temperature (F): 98.9 (Arlin Ring, RN) Temperature (C): 37.2 (QS system process) Temperature Route: Oral (Arlin Ring, RN) Pain Scale: 1 (Arlin Ring, RN) Pain Presence: Intermittent (Arlin Ring, RN) Pain Type: Cramping (Arlin Ring, RN) Pain Location: Abdomen (Arlin Ring, RN) Pain Goal: 1 (Arlin Ring, RN) Pain Relief Measures: Comfort Measures (Arlin Ring, RN) Datetime: 01/30/2017 06:15 Stage of : Recovery (Arlin Ring, RN) NBP Sys/Lyssa/Mean (mmHg): 122 (QS system process) : 58 (QS system process) : 83 (QS system process) Pulse: 77 (QS system process) Pain Scale: 0 (Arlin Ring, RN) Pain Presence: None/Denies (Arlin Ring, RN) Pain Type: N/A (Arlin Ring, RN) Datetime: 01/30/2017 06:01 NBP Sys/Lyssa/Mean (mmHg): 158 (QS system process) : 67 (QS system process) : 96 (QS system process) Pulse: 102 (QS system process) Datetime: 01/30/2017 06:00 Stage of : Recovery (Arlin Ring, RN) Pain Scale: 0 (Arlin Ring, RN) Pain Presence: None/Denies (Arlin Ring, RN) Pain Type: N/A (Arlin Ring, RN) Datetime: 01/30/2017 05:49 Pushing: Coached on Pushing; Urge to Push (Arlin Ring, RN) Pushing Position: Pushing with Contractions; Pushing Lithotomy (Arlin Ring, RN) Pushing Progress: with Pushing (Arlin Ring, RN) Communication: Provider at Bedside (Arlin Ring, RN) Datetime: 01/30/2017 05:47 Pushing: Coached on Pushing; Urge to Push (Arlin Ring, RN) Pushing Position: Pushing with Contractions; Pushing Lithotomy (Arlin Ring, RN) Pushing Progress: Descent with Pushing; Presenting Part Visible (Arlin Ring, RN) Datetime: 01/30/2017 05:45 NBP Sys/Lyssa/Mean (mmHg): 117 (QS system process) : 57 (QS system process) : 82 (QS system process) Pulse: 115 (QS system process) Monitor Mode: External (Ioana Bruce, RN) Frequency (min): 1.5-3 (Ioana Bruce, RN) Quality: Moderate to Strong (Ioana Bruce, RN) Duration (sec): 40-60 (Ioana Bruce, RN) Duration Criteria: Less than Two 120 Second Contractions (Ioana Bruce, RN) Pattern: Normal: <= 5 Contractions in 10 Minutes (Ioana Bruce, RN) Resting Tone (Palpate): Relaxed (Ioana Bruce, RN) Monitor Mode: External US (Ioana Bruce, RN) FHR Baseline Rate : 135 (Ioana Bruce, RN) Variability: Moderate 6-25 bpm (Ioana Bruce, RN) Accelerations: 15X15 (Ioana Bruce, RN) Decelerations: Variable (Ioana Bruce, RN) Comments: broken tracing, pt. pushing, RN remains at bedside adjusting u/s and continuously, monitoring fht (Ioana Bruce, RN) LaborFlag: Antepartum (QS system process) Datetime: 01/30/2017 05:42 IV/Blood Work: New IV Bag Hung (Arlin Ring, RN) Datetime: 01/30/2017 05:38 Pushing: Coached on Pushing; Urge to Push (Arlin Ring, RN) Pushing Position: Pushing with Contractions; Pushing Lithotomy (Arlin Ring, RN) Datetime: 01/30/2017 05:30 NBP Sys/Lyssa/Mean (mmHg): 138 (QS system process) : 74 (QS system process) : 99 (QS system process) Pulse: 92 (QS system process) Monitor Mode: External (Ioana Bruce, RN) Quality: Moderate to Strong (Ioana Bruce, RN) Duration (sec): 40-60 (Ioana Bruce, RN) Duration Criteria: Less than Two 120 Second Contractions (Ioana Bruce, RN) Resting Tone (Palpate): Relaxed (Ioana Bruce, RN) Contraction Comments: pt. sitting for epidural, unable to determine ctn frequency, toco adjusted (Ioana Bruce, RN) Monitor Mode: External US (Ioana Bruce, RN) FHR Baseline Rate : 135 (Ioana Bruce, RN) Variability: Moderate 6-25 bpm (Ioana Bruce, RN) Accelerations: 15X15 (Ioana Bruce, RN) Comments: pt. sitting for epidural, unable to determine decel noted (Ioana Bruce, RN) LaborFlag: Antepartum (QS system process) Datetime: 01/30/2017 05:29 NBP Sys/Lyssa/Mean (mmHg): 125 (QS system process) : 72 (QS system process) : 91 (QS system process) Pulse: 82 (QS system process) Dilatation (cm): 10.0 (Arlin Ring, RN) Effacement (%): 100 (Arlin Ring, RN) Station: 1 (Arlin Ring, RN) Exam by: Dr. Cabrera (Arlin Ring, RN) Membranes Rupture Method: Artificial (Arlin Ring, RN) Amniotic Fluid Color: Clear (Arlin Ring, RN) Amniotic Fluid Amount: Small (Arlin Ring, RN) Amniotic Fluid Odor: Normal (Arlin Ring, RN) Stage 2 Comments: RN to remain at bedside throughout second stage of labor, adjusting u/s and continuously monitoring FHT (Ioana Barrera, ABHIJEET) LaborFlag: Antepartum (QS system process) Datetime: 01/30/2017 05:28 NBP Sys/Lyssa/Mean (mmHg): 125 (QS system process) : 68 (QS system process) : 90 (QS system process) Pulse: 90 (QS system process) LaborFlag: Antepartum (QS system process) Datetime: 01/30/2017 05:27 NBP Sys/Lyssa/Mean (mmHg): 134 (QS system process) : 63 (QS system process) : 91 (QS system process) Pulse: 83 (QS system process) Communication Comments: Dr. Cabrera at bedside. (Arlin Bauer RN) LaborFlag: Antepartum (QS system process) Datetime: 01/30/2017 05:26 NBP Sys/Lyssa/Mean (mmHg): 133 (QS system process) : 68 (QS system process) : 92 (QS system process) Pulse: 83 (QS system process) LaborFlag: Antepartum (QS system process) Datetime: 01/30/2017 05:25 NBP Sys/Lyssa/Mean (mmHg): 141 (QS system process) : 73 (QS system process) : 99 (QS system process) Pulse: 96 (QS system process) LaborFlag: Antepartum (QS system process) Datetime: 01/30/2017 05:24 NBP Sys/Lyssa/Mean (mmHg): 139 (QS system process) : 63 (QS system process) : 90 (QS system process) Pulse: 86 (QS system process) LaborFlag: Antepartum (QS system process) Datetime: 01/30/2017 05:23 NBP Sys/Lyssa/Mean (mmHg): 132 (QS system process) : 64 (QS system process) : 92 (QS system process) Pulse: 89 (QS system process) Monitor Interventions for UA: [place] Adjusted (Ioana Bruce, RN) LaborFlag: Antepartum (QS system process) Datetime: 01/30/2017 05:22 NBP Sys/Lyssa/Mean (mmHg): 138 (QS system process) : 66 (QS system process) : 95 (QS system process) Pulse: 105 (QS system process) LaborFlag: Antepartum (QS system process) Datetime: 01/30/2017 05:21 NBP Sys/Ylssa/Mean (mmHg): 144 (QS system process) : 68 (QS system process) : 97 (QS system process) Pulse: 88 (QS system process) LaborFlag: Antepartum (QS system process) Datetime: 01/30/2017 05:20 NBP Sys/Lyssa/Mean (mmHg): 138 (QS system process) : 63 (QS system process) : 96 (QS system process) Pulse: 86 (QS system process) LaborFlag: Antepartum (QS system process) Datetime: 01/30/2017 05:19 NBP Sys/Lyssa/Mean (mmHg): 142 (QS system process) : 79 (QS system process) : 105 (QS system process) Pulse: 90 (QS system process) Epidural Procedure: Cath Placed (Arlin Ring, RN) LaborFlag: Antepartum (QS system process) Datetime: 01/30/2017 05:18 NBP Sys/Lyssa/Mean (mmHg): 138 (QS system process) : 72 (QS system process) : 99 (QS system process) Pulse: 90 (QS system process) SpO2 (%): 98 (QS system process) LaborFlag: Antepartum (QS system process) Datetime: 01/30/2017 05:16 Epidural Procedure: Test Dose (Arlin Ring, RN) Datetime: 01/30/2017 05:15 Monitor Mode: External (Ioana Bruce, RN) Frequency (min): 4-5 (Ioana Bruce, RN) Quality: Moderate to Strong (Ioana Bruce, RN) Duration (sec): 50-60 (Ioana Bruce, RN) Duration Criteria: Less than Two 120 Second Contractions (Ioana Bruce, RN) Pattern: Normal: <= 5 Contractions in 10 Minutes (Ioana Bruce, RN) Resting Tone (Palpate): Relaxed (Ioana Bruce, RN) Monitor Mode: External US (Ioana Bruce, RN) FHR Baseline Rate : 135 (Ioana Bruce, RN) Variability: Moderate 6-25 bpm (Ioana Bruce, RN) Accelerations: 15X15 (Ioana Bruce, RN) Comments: pt. sitting for epidural, broken tracing, unable to determine if decels noted (Ioana Bruce, RN) Datetime: 01/30/2017 05:13 Pulse: 91 (QS system process) SpO2 (%): 98 (QS system process) LaborFlag: Antepartum (QS system process) Datetime: 01/30/2017 05:10 Procedure Verify: Correct Patient Identity; Correct Side and Site are Marked; Accurate Procedure Consent Form; Agreement on Procedure to be Done; Correct Patient Position; Relevant Images and Results are Properly Labeled and Displayed; Addressed Need to Administer Antibiotics or Fluids for Irrigation; Safety Precautions Based on Patient History or Medication Use (Arlin Bauer, ABHIJEET) Anesthesia Plans: Epidural (Arlin Bauer RN) Epidural Positioning: Sitting (Arlin Bauer RN) Anesthesia Comments: Dr. Crandall at bedside (Arlin Bauer, ABHIJEET) Datetime: 01/30/2017 05:09 Pulse: 81 (QS system process) SpO2 (%): 92 (QS system process) LaborFlag: Antepartum (QS system process) Datetime: 01/30/2017 05:08 Pulse: 92 (QS system process) SpO2 (%): 96 (QS system process) LaborFlag: Antepartum (QS system process) Datetime: 01/30/2017 05:03 Pulse: 75 (QS system process) SpO2 (%): 95 (QS system process) LaborFlag: Antepartum (QS system process) Datetime: 01/30/2017 05:01 Procedure Verify: Correct Patient Identity; Correct Side and Site are Marked; Accurate Procedure Consent Form; Agreement on Procedure to be Done; Correct Patient Position; Relevant Images and Results are Properly Labeled and Displayed; Addressed Need to Administer Antibiotics or Fluids for Irrigation; Safety Precautions Based on Patient History or Medication Use (Arlin Bauer, RN) Anesthesia Plans: Epidural (Alrin Bauer, RN) Epidural Positioning: Sitting (Arlin Bauer, RN) Datetime: 01/30/2017 04:55 Procedure Verify: Correct Patient Identity; Correct Side and Site are Marked; Accurate Procedure Consent Form; Agreement on Procedure to be Done; Relevant Images and Results are Properly Labeled and Displayed; Addressed Need to Administer Antibiotics or Fluids for Irrigation; Safety Precautions Based on Patient History or Medication Use (Arlin Ring, RN) Anesthesia Plans: Epidural (Arlin Ring, RN) Datetime: 01/30/2017 04:51 Antibiotics: Start Antibiotics; Penicillin IV (Units) @ [id number] (Arlin Ring, RN) Datetime: 01/30/2017 04:49 Pain Coping: Requesting Pain Medication or Epidural (Arlin Ring, RN) Datetime: 01/30/2017 04:45 Monitor Mode: External (Ioana Bruce, RN) Frequency (min): 4.5-5.5 (Ioana Bruce, RN) Quality: Moderate to Strong (Ioana Bruce, RN) Duration (sec): 40-60 (Ioana Bruce, RN) Duration Criteria: Less than Two 120 Second Contractions (Ioana Bruce, RN) Pattern: Normal: <= 5 Contractions in 10 Minutes (Ioana Bruce, RN) Resting Tone (Palpate): Relaxed (Ioana Bruce, RN) Monitor Mode: External US (Ioana Bruce, RN) FHR Baseline Rate : 155 (Ioana Bruce, RN) Variability: Moderate 6-25 bpm (Ioana Bruce, RN) Accelerations: Prolonged (Ioana Bruce, RN) Decelerations: None (Ioana Bruce, RN) Datetime: 01/30/2017 04:44 NBP Sys/Lyssa/Mean (mmHg): 144 (QS system process) : 86 (QS system process) : 110 (QS system process) Pulse: 77 (QS system process) LaborFlag: Antepartum (QS system process) Datetime: 01/30/2017 04:15 Monitor Mode: External; Palpation (Ioana Bruce, RN) Frequency (min): 4-5 (Ioana Bruce, RN) Quality: Moderate to Strong (Ioana Bruce, RN) Duration (sec): 50-80 (Ioana Bruce, RN) Duration Criteria: Less than Two 120 Second Contractions (Ioana Bruce, RN) Pattern: Normal: <= 5 Contractions in 10 Minutes (Ioana Bruce, RN) Resting Tone (Palpate): Relaxed (Ioana Bruce, RN) Monitor Mode: External US (Ioana Bruce, RN) FHR Baseline Rate : 125 (Ioana Bruce, RN) Variability: Moderate 6-25 bpm (Ioana Bruce, RN) Accelerations: 15X15 (Ioana Bruce, RN) Comments: broken tracing, unable to determine decel noted (Ioana Bruce, RN) Datetime: 01/30/2017 04:13 NBP Sys/Lyssa/Mean (mmHg): 148 (QS system process) : 84 (QS system process) : 110 (QS system process) Pulse: 90 (QS system process) LaborFlag: Antepartum (QS system process) Datetime: 01/30/2017 04:09 Monitor Interventions for FHR: Ultrasound Adjusted (Ioana Bruce, RN) Comments: RN at bedside adjusting u/s (Ioana Bruce, RN) Datetime: 01/30/2017 04:01 Communication Comments: Dr. Cabrera on unit (Ioana Bruce, RN) Datetime: 01/30/2017 04:00 Frequency (min): every 5 minutes per pt (Arlin Bauer RN) Pain Scale: 5 (Arlin Bauer RN) Pain Presence: Intermittent (Arlin Bauer RN) Pain Type: Contraction (Arlin Bauer, RN) Pain Location: Abdomen; Back; Perineum (Arlin Bauer, RN) Pain Goal: 1 (Arlin Bauer RN) Pain Relief Measures: Comfort Measures (Arlin Bauer, RN) Pain Coping: Breathing Through Contractions; Requesting Pain Medication or Epidural (Arlin Bauer, RN) Pain Assessment Comments: Pt requesting epidural. Bolus started, labs drawn. (Arlin Bauer, RN) Vaginal Bleeding: Normal Show (Arlin Bauer, RN) Level of Consciousness: Fully Conscious (Arlin Bauer, RN) DTR's/Clonus: DTRs 2+; No Clonus (Arlin Bauer, RN) Headache: Denies (Arlin Bauer RN) Breath Sounds, Left: Clear and Equal (Arlin Bauer RN) Breath Sounds, Right: Clear and Equal (Arlin Bauer, RN) Nausea/Vomiting: Denies (Arlin Bauer, RN) RUQ Epigastric Pain: Denies (Arlin Bauer, RN) Instructional Method: Verbal; Patient Instructed; Family/Support Person Instructed; Verbalized Understanding (Arlin Bauer RN) Plan of Care: Plan of Care Discussed (Arlin Bauer RN) Unit Routine: [place] to Room; [place]; Bed; Handwashing; Monitoring; IV Pumps; Safety/Fall Risk Prevention; Bathroom Privileges (Arlin Bauer RN) LaborFlag: Antepartum (QS system process) Datetime: 01/30/2017 03:52 Communication Comments: Dr. Cabrera called and noitifed of pt. arrival, hx, and SVE. Orders received to admit pt. at this time and he will be to the unit shortly (Ioana Barrera RN) Datetime: 01/30/2017 03:49 Dilatation (cm): 9.0 (Arlin Bauer, RN) Effacement (%): 90 (Arlin Bauer RN) Station: 0 (Arlin Bauer RN) Exam by: Fior Bauer RN (Arlin Bauer RN) Membrane Status: Bulging (Arlin Bauer, ABHIJEET) Cervix, Consistency: Soft (Arlin Bauer RN)
[2017-01-30] MEDS ORDERED: PENICILLIN G POTASSIUM 2,500,000 UNIT in DEXTROSE 5%-WATER 50 ML IV SCH (08:42)
--- NOTE | 2017-01-30 09:32 | Admission Physical ---
Datetime Report Generated by CPN: 01/30/2017 09:32 CURRENT ADMISSION Chief Complaint: Uterine Contractions Indication for Induction: Not Applicable Admit Plan: Admit to Unit; Initiate Labor Protocol ALLERGIES Medication Allergies: No Medication Allergies: No Known Allergies (01/30/2017) Medication Allergies: No Known Allergies (11/16/2016) Medication Allergies: No Known Allergies (05/25/2015) Latex: No Latex Allergies Food Allergies: None Environmental Allergies: None OBSTETRICAL HISTORY EDC: 02/15/2017 00:00 : 2 Para: 1 Term: 1 : 0 SAB: 0 IAB: 0 Ectopic: 0 Livin Cesareans: 0 VBACs: 0 Multiple Births: 0 Gestational Diabetes: No Rh Sensitization: No Incompetent Cervix: No TERELL: No Infertility: No ART Treatment: No Uterine Anomaly: No IUGR: No Hx Previous C/S: No Macrosomia: No Hx Loss/Stillborn: Unknown PIH: No Hx : No Placenta Previa/Abruption: No Depression/PP Depression: No PTL/PROM: No Post Hemorrhage: No Current Procedures: Ultrasound Obstetrical History Comments: G1 - at 39 wks (04/2015) G2 - current SEE RECORDS Alcohol: No Marijuana : No Cocaine: No Other Illicit Drugs: No Cigarettes: Never Smoker. [id number] MEDICAL HISTORY Diabetes: No Blood Transfusion: No Pulmonary Disease (Asthma, TB): No Breast Disease: Yes Hypertension: No Reel Blade Bender Furnace Tender Surgery: No Heart Disease: No Hosp/Surgery: No Autoimmune Disorder: No Anesthetic Complications: No Kidney Disease: No Abnormal Pap Smear: No Neuro/Epilepsy: No Psychiatric Disorders: No Other Medical Diseases: No Hepatitis/Liver Disease: No Significant Family History: No Varicosities/Phlebitis: No Trauma/Violence : No Thyroid Dysfunction: No Medical History Comments: Breast biopsy 2014 INFECTIOUS HISTORY Gonorrhea: No Genital Herpes: No Chlamydia: No Tuberculosis: No Syphilis: No Hepatitis: No HIV/AIDS Exposure: No Rash or Viral Illness: No HPV: No PHYSICAL EXAM General: Normal HEENT: Normal Neurologic: Normal Thyroid: Normal Heart: Normal Lungs: Normal Breast: Deferred Back: Normal Abdomen: Normal Genitourinary Exam: Normal Extremities: Normal DTRs: Normal Pelvic Type: Adequate Vital Signs: Reviewed VAGINAL EXAM Dilatation: 9 Effacement: 90 Station: 0 MEMBRANES Pooling: Negative Membranes: Intact FETUS A EGA: 37.5 Presentation: Vertex Admit Comment: efw 7-8 lbs PLANS FOR LABOR AND DELIVERY Labor and Delivery: None Pain Management: Epidural Feeding Preference: Both Benefit of Breast Feed Discussed: Yes Circumcision: No INFORMED CONSENT Signature: with User ID: [email or web address]
[2017-01-30] MEDS: FAMOTIDINE 20 MG TABLET PO SCH ×2 (10:44→21:42)
[2017-01-30] MEDS: PRENATAL VITAMIN W-O CA NO5/FE FUMARATE/FA CAPSULE PO SCH (10:44)
[2017-01-30] MEDS: SENNOSIDES/DOCUSATE 8.6-50 MG 1 EACH TABLET PO SCH (10:44)
[2017-01-30] MEDS: DOCUSATE SODIUM 100 MG CAPSULE PO SCH ×2 (10:45→17:24)
--- NOTE | 2017-01-30 19:00 | L&D Flow Sheet ---
LD Flowsheet Datetime Report Generated by CPN: 01/30/2017 19:00 Datetime: 01/30/2017 07:45 NBP Sys/Lyssa/Mean (mmHg): 107 (QS system process) : 58 (QS system process) : 77 (QS system process) Pulse: 56 (QS system process) Respirations: 16 (Bhavya Chris, RN) Datetime: 01/30/2017 07:30 NBP Sys/Lyssa/Mean (mmHg): 110 (QS system process) : 56 (QS system process) : 77 (QS system process) Pulse: 53 (QS system process) Respirations: 16 (Bhavya Perez, RN) Datetime: 01/30/2017 07:18 NBP Sys/Lyssa/Mean (mmHg): 116 (QS system process) : 63 (QS system process) : 78 (QS system process) Pulse: 68 (QS system process) Respirations: 16 (Bhavya Perez RN) Pain Scale: 0 (Bhavya Perez RN) Pain Presence: None/Denies (Bhavya Perez, RN) Pain Type: N/A (Bhavya Perez, RN) Datetime: 01/30/2017 07:14 Communication Comments: Report to Romina Perez RN. Care relinquished at this time. (Arlin Bauer RN) Datetime: 01/30/2017 07:00 Stage of : Recovery (Arlin Bauer RN) Pain Scale: 1 (Arlin Bauer RN) Pain Presence: Intermittent (Arlin Bauer RN) Pain Location: Abdomen (Arlin Bauer RN) Pain Goal: 1 (Arlin Bauer RN) Pain Relief Measures: Comfort Measures (Arlin Bauer RN)
--- NOTE | 2017-01-31 06:00 | L&D Current Admission ---
Current Admit Datetime Report Generated by CPN: 01/31/2017 06:00 ADMISSION INFORMATION Current Admit Date/Time: 01/30/2017 04:05 (01/29/2017 13:11:Sherrie Molina RN) Reason for Admission: Onset of Labor (01/29/2017 13:11:Sherrie Molina RN) Chief Complaint: Contractions (01/30/2017 04:00:Arlin Bauer RN) Medications During : Vitamin (01/29/2017 13:11:Sherrie Molina RN) EGA per Dates: 37.5 (01/29/2017 13:11:QS system process) Method of Arrival: Wheelchair (01/29/2017 13:11:Sherrie Molina RN) Admitted From: Home (01/29/2017 13:11:Sherrie Molina RN) Reason for Induction: Not Applicable (01/29/2017 13:11:Shrerie Molina RN) Records Available: Yes (01/29/2017 13:11:Sherrie Molina RN) General Admission Information: Reviewed (01/29/2017 13:11:Sherrie Molina RN) General Admission Reviewed By: Romina Molina RN (01/29/2017 13:11:Sherrie Molina RN) BELONGINGS/ADVANCED DIRECTIVES Other Belongings: clothes (01/29/2017 13:11:Sherrie Molina RN) Disposition of Belongings: Kept with Patient (01/29/2017 13:11:Sherrie Molina RN) Advance Direct for Healthcare: No, and Wants No Information (01/29/2017 13:11:Sherrie Molina RN) Durable Power of Key Person: Yes (01/29/2017 13:11:Sherrie Molina RN) Living Will: No (01/29/2017 13:11:Sherrie Molina RN) Organ Donor: No (01/29/2017 13:11:Sherrie Molina RN) Pt Rights Information Given: Yes (01/29/2017 13:11:Sherrie Molina RN) Pt Understands Pt Rights: Yes (01/29/2017 13:11:Sherrie Molina RN) LEARNING ASSESSMENT Knowledge Level: Understands L_D Process; Understands Care Activities; Had Pre-Hospital Education; Understands Diagnosis (01/29/2017 13:11:Ioana Barrera RN) Barriers to Learning: None (01/29/2017 13:11:Ioana Barrera RN) Learning Readiness: Motivated (01/29/2017 13:11:Sherrie Molina RN) Learns Best By: 1 to 1 Instruction (01/29/2017 13:11:Ioana Barrera RN) Learning Needs: Labor and Delivery Process; Pain Management; Symptoms to Report; Treatment Plan; Medication; Diagnosis; Nutrition; Equipment; Care; Community Resources (01/29/2017 13:11:Sherrie Molina RN) DOMESTIC VIOLANCE SCREENING Dom Viol Threatened/Hurt: No (01/29/2017 13:11:Ioana Barrera RN) Hx of Abuse/Neglect past 2yrs: No (01/29/2017 13:11:Ioana Barrera RN) Feel Unsafe Going Home: No (01/29/2017 13:11:Ioana Barrera RN) Addt'l Observ Indicating Abuse: No (01/29/2017 13:11:Ioana Barrera RN) Reason Unable to Complete Screen: N/A, Screen Completed (01/29/2017 13:11:Ioana Barrera RN) Considered Personal Harm/Suicide: No (01/29/2017 13:11:Ioana Barrera RN) NUTRITIONAL/FUNCTIONAL SCREENING Problem with Appetite >5 Days: No (01/29/2017 13:11:Ioana Barrera RN) Chew/Swallow Difficulties: No (01/29/2017 13:11:Ioana Barrera RN) Inappropriate Wt Gain/Loss: No (01/29/2017 13:11:Ioana Barrera RN) Presence Skin Breakdown/Ulcer: No (01/29/2017 13:11:Ioana Barrera RN) Special Diet: No (01/29/2017 13:11:Ioana Barrera RN) Pt Requests [place] [employer] Targeting Supervisor Visit: No (01/29/2017 13:11:Ioana Barrera RN) Hx of Any of the Following?: N/A (01/29/2017 13:11:Ioana Barrera RN) New Diagnosis of: N/A (01/29/2017 13:11:Ioana Barrera RN) Requires Assist w/Ambulation: No (01/29/2017 13:11:Ioana Barrera RN) Uses Assist Device to Ambulate: No (01/29/2017 13:11:Ioana Barrera RN) Pt Requires Help w/ADL's: No (01/29/2017 13:11:Ioana Barrera RN)
--- NOTE | 2017-01-31 06:00 | L&D General Admission ---
General Admit Datetime Report Generated by CPN: 01/31/2017 06:00 INFORMATION Patient Age: 21 (11/16/2016 12:14:QS system process) EDC: 02/15/2017 00:00 (11/16/2016 12:45:Garett Mansfield RN) : 2 (11/16/2016 12:45:Vandana Epps RN) Para: 1 (11/16/2016 12:45:Vandana Epps RN) Term: 1 (11/16/2016 12:45:Vnadana Epps RN) : 0 (11/16/2016 12:45:Vandana Epps RN) Spontaneous Abortions: 0 (11/16/2016 12:45:Vandana Epps RN) Induced Abortions: 0 (11/16/2016 12:45:Vandana Epps RN) Livin (11/16/2016 12:45:Vandana Epps RN) Cesareans: 0 (11/16/2016 12:45:Vandana Epps RN) VBACs: 0 (11/16/2016 12:45:Vandana Epps RN) Ectopic: 0 (11/16/2016 12:45:Vandana Epps RN) Multiple Births: 0 (11/16/2016 12:45:Vandana Epps RN) Baby, Number in Womb: 1 (11/16/2016 12:45:Vandana Epps RN) CARE Primary Hospital Nurse Liaison: [facility] (11/16/2016 12:45:Garett Mansfield RN) Adequate Care: Yes (11/16/2016 12:45:Arlin Bauer RN) Height (in): 63 (01/30/2017 09:31:QS system process) ALLERGIES Medication Allergy: No (11/16/2016 12:45:Garett Mansfield RN) Medication Allergies: No Known Allergies (01/30/2017) (01/30/2017 04:21:QS system process) Latex Allergy: No Latex Allergies (11/16/2016 12:45:Garett Mansfield RN) Food Allergies: None (11/16/2016 12:45:Vandana Epps, RN) Environmental Allergies: None (11/16/2016 12:45:Vandana Epps RN) COMMUNICATION Primary Language: Chinese (11/16/2016 12:45:Garett Mansfield RN) Medical Tx Preferred Language: Chinese (11/16/2016 12:45:Vandana Epps RN) Korean Communication Ability: No understanding, LEAFLET OR NEWSPAPER DELIVERER needed (11/16/2016 12:45:Vandana Epps RN) Communication Barrier(s): Language barrier (11/16/2016 12:45:Vandana Epps RN) DEMOGRAPHICS Address: [place], [address] [address] (11/16/2016 12:14:QS system process) Zipcode: [phone] (11/16/2016 12:14:QS system process) Home (11/16/2016 12:14:QS system process) N: [phone] (11/16/2016 12:14:QS system process) Next of Kin Name: NUBIA JIMENEZVAR (11/16/2016 12:14:QS system process) Next of Kin (11/16/2016 12:14:QS system process) Next of Kin Relationship: OR (11/16/2016 12:14:QS system process) Date of : 1995 (11/16/2016 12:14:QS system process) Marital Status: Single (11/16/2016 12:14:QS system process) Sex: Female (11/16/2016 12:14:QS system process) Race: Other (11/16/2016 12:14:QS system process) Ethnicity: or (11/16/2016 12:14:QS system process) Islam: None (11/16/2016 12:14:QS system process) DRUG AND ALCOHOL USE Alcohol: No (11/16/2016 12:45:Vandana Epps RN) Cigarettes: Never Smoker. [id number] (11/16/2016 12:45:Vandana Epps RN) Marijuana: No (11/16/2016 12:45:Vandana Epps RN) Cocaine: No (11/16/2016 12:45:Vandana Epps RN) Other Illicit Drugs: No (11/16/2016 12:45:Vandana Epps RN) VACCINE HISTORY Influenza Vaccine: Yes (11/16/2016 12:45:Vandana Epps RN) Pneumococcal Vaccine: No (11/16/2016 12:45:Vandana Epps RN) Tetanus Vaccine: Uncertain (11/16/2016 12:45:Vandana Epps RN) Tdap Vaccine: Uncertain (11/16/2016 12:45:Vandana Epps RN) Hepatitis B Vaccine: Uncertain (11/16/2016 12:45:Vandana Epps RN) Absorption And Adsorption Engineer: [facility] (11/16/2016 12:45:Vandana Epps RN) Feeding Preference: Both (11/16/2016 12:45:Vandana Epps RN) Benefit of Breast Feed Discussed: Yes (11/16/2016 12:45:Vandana Epps RN) Circumcision: No (11/16/2016 12:45:Vandana Epps RN) Classes Attended: No (11/16/2016 12:45:Vandana Epps RN) Tubal Ligation: No (11/16/2016 12:45:Vandana Epps RN) Tubal Authorization Signed: N/A (11/16/2016 12:45:Vandana Epps RN) Consent: N/A (11/16/2016 12:45:Vandana Epps RN) Consent Signed: N/A (11/16/2016 12:45:Vandana Epps RN) Pain Management Plans: Epidural (11/16/2016 12:45:Vandana Epps RN) Plans for Labor and Delivery: None (11/16/2016 12:45:Vandana Epps RN) Support Person: Michel Shannon (11/16/2016 12:45:Vandana Epps RN) Support Person Relationship: Significant Other (11/16/2016 12:45:Vandana Epps RN) Cultural/Spritual Practice: No (11/16/2016 12:45:Vandana Epps RN) Spir/Cult Dietary Needs: No (11/16/2016 12:45:Vandana Epps RN) LIVING SITUATION/DISCHARGE PLAN Living Arrangements: House (11/16/2016 12:45:Vandana Epps RN) Adequate Access to:: Electric; Heat; Refrigeration; Plumbing/Running water; Phone; Transportation (11/16/2016 12:45:Vandana Epps RN) WIC Program: Yes (11/16/2016 12:45:Vandana Epps RN) Discharge Farmhand Person: Michel Shannon (11/16/2016 12:45:Vandana Epps RN) Person to Help after Discharge: Michel Shannon (11/16/2016 12:45:Vandana Epps RN) Currently Using Commun Resources: Yes (11/16/2016 12:45:Vandana Epps RN) Specify Current Resource Used: Medicaid (11/16/2016 12:45:Vandana Epps RN) Outside Agency/College Associate: Yes (11/16/2016 12:45:Vandana Epps RN) Specify Agency/ College Associate: unsure (11/16/2016 12:45:Vandana Epps RN) Car Seat for Discharge: Yes (11/16/2016 12:45:Vandana Epps RN) Adoption Requested: No (11/16/2016 12:45:Vandana Epps RN) Pt Contact w/ Post : N/A (11/16/2016 12:45:Vandana Epps RN) LABS Blood Type: B Positive (11/16/2016 12:45:Vandana Epps RN) Hemoglobin: 11.4 L (01/30/2017 04:07:QS system process) Hematocrit: 33.1 L (01/30/2017 04:07:QS system process) MCV: 86 (01/30/2017 04:07:QS system process) Group Beta Strep: unknown (11/16/2016 12:45:Ioana Barrera RN) Gonorrhea: Negative (11/16/2016 12:45:Vandana Epps RN) Chlamydia: Negative (11/16/2016 12:45:Vandana Epps RN) RPR/VDRL: Nonreactive (11/16/2016 12:45:Vandana Epps RN) HIV Exposure Test: Negative (11/16/2016 12:45:Vandana Epps RN) Hepatitis B: Negative (11/16/2016 12:45:Vandana Epps RN) Rubella: Immune (11/16/2016 12:45:Vandana Epps RN) Varicella: Non Susceptible (11/16/2016 12:45:Vandana Epps RN) OB/PREVIOUS HISTORY Previous Procedures: Ultrasound (11/16/2016 12:45:Arlin Bauer RN) Current Procedures: Ultrasound (11/16/2016 12:45:Arlin Bauer RN) History of Previous : No (11/16/2016 12:45:Vandana Epps RN) History of Gestational Diabetes: No (11/16/2016 12:45:Vandana Epps RN) History of PIH: No (11/16/2016 12:45:Vandana Epps RN) History of Incompetent Cervix: No (11/16/2016 12:45:Vandana Epps RN) History of Placenta Previa/Abrup: No (11/16/2016 12:45:Vandana Epps RN) History of Macrosomia: No (11/16/2016 12:45:Vandana Epps RN) History of IUGR: No (11/16/2016 12:45:Vandana Epps RN) History of Hemorrhage: No (11/16/2016 12:45:Vandana Epps RN) History of Loss/Stillborn: Unknown (11/16/2016 12:45:Vandana Epps RN) History of : No (11/16/2016 12:45:Vandana Epps RN) History of D (Rh) Sensitization: No (11/16/2016 12:45:Vandana Epps RN) History Recurrent Loss/Stillborn: Unknown (11/16/2016 12:45:Vandana Epps RN) History Depression/PP Depression: No (11/16/2016 12:45:Vandana Epps RN) History of Uterine Anomaly/TERELL: No (11/16/2016 12:45:Vandana Epps RN) History of Infertility: No (11/16/2016 12:45:Vandana Epps RN) History of ART Treatment: No (11/16/2016 12:45:Vandana Epps RN) History of TERELL: No (11/16/2016 12:45:Vandana Epps RN) Comments Obstetrical History: G1 - at 39 wks (04/2015) G2 - current (11/16/2016 12:45:Arlin Bauer RN) MEDICAL HISTORY Med Hx Diabetes: No (11/16/2016 12:45:Vandana Epps RN) Med Hx Hypertension: No (11/16/2016 12:45:Vandana Epps RN) Med Hx Heart Disease: No (11/16/2016 12:45:Vandana Epps RN) Med Hx Autoimmune Disorder: No (11/16/2016 12:45:Vandana Epps RN) Med Hx Kidney Disease/UTI: No (11/16/2016 12:45:Vandana Epps RN) Med Hx Neurologic/Epilepsy: No (11/16/2016 12:45:Vandana Epps RN) Med Hx Psychiatric Disorders: No (11/16/2016 12:45:Vandana Epps RN) Med Hx Hepatitis/Liver Disease: No (11/16/2016 12:45:Vandana Epps RN) Med Hx Varicosities/Phlebitis: No (11/16/2016 12:45:Vandana Epps RN) Med Hx Thyroid Dysfunction: No (11/16/2016 12:45:Vandana Epps RN) Med Hx Trauma/Violence: No (11/16/2016 12:45:Vandana Epps RN) Med Hx Blood Transfusion: No (11/16/2016 12:45:Vandana Epps RN) Med Hx Pulmonary (Asthma,TB): No (11/16/2016 12:45:Vandana Epps RN) Med Hx Breast: Yes (11/16/2016 12:45:Arlin Bauer RN) Med Hx METALS ANALYST Surgery: No (11/16/2016 12:45:Vandana Epps RN) Med Hx Hospitalization/Surgery: No (11/16/2016 12:45:Vandana Epps RN) Med Hx Anesthetic Complications: No (11/16/2016 12:45:Vandana Epps RN) Med Hx Abnormal Pap Smear: No (11/16/2016 12:45:Vandana Epps RN) Other Medical Diseases: No (11/16/2016 12:45:Vandana Epps RN) Med Hx Significant Family Hx: No (11/16/2016 12:45:Vandana Epps RN) Details of Med/Surg Hx: Breast biopsy 2014 (11/16/2016 12:45:Arlin Bauer RN) INFECTIOUS HISTORY Inf Hx Gonorrhea: No (11/16/2016 12:45:Vandana Epps RN) Inf Hx Chlamydia: No (11/16/2016 12:45:Vandana Epps RN) Inf Hx Syphilis: No (11/16/2016 12:45:Vandana Epps RN) Inf Hx HIV/AIDS: No (11/16/2016 12:45:Vandana Epps RN) Inf Hx Human Papilloma Virus: No (11/16/2016 12:45:Vandana Epps RN) Inf Hx Pt/Partner Genital Herpes: No (11/16/2016 12:45:Vandana Epps RN) Inf Hx Tuberculosis/Exposure: No (11/16/2016 12:45:Vandana Epps RN) Inf Hx Hepatitis B,C: No (11/16/2016 12:45:Vandana Epps RN) Inf Hx Rash or Viral Illness: No (11/16/2016 12:45:Vandana Epps RN) GENETIC HISTORY Gen Hx Age >=35 at [facility]: Unknown (11/16/2016 12:45:Vandana Epps RN) Gen Hx Thalassemia: Unknown (11/16/2016 12:45:Vandana Epps RN) Gen Hx Congenital Heart Defect: Yes (11/16/2016 12:45:Arlin Bauer RN) Gen Hx Neural Tube Defect: Unknown (11/16/2016 12:45:Vandana Epps RN) Gen Hx Down's Syndrome: Unknown (11/16/2016 12:45:Vandana Epps RN) Gen Hx Clement-Sachs: Unknown (11/16/2016 12:45:Vandana Epps RN) Gen Hx Lawrence: Unknown (11/16/2016 12:45:Vandana Epps RN) Gen Hx Familial Dysautonomia: Unknown (11/16/2016 12:45:Vandana Epps RN) Gen Hx Sickle Cell Disease/Trait: Unknown (11/16/2016 12:45:Vandana Epps RN) Gen Hx Hemophilia/Blood Disorder: Unknown (11/16/2016 12:45:Vandana Epps RN) Gen Hx Muscular Dystrophy: Unknown (11/16/2016 12:45:Vandana Epps RN) Gen Hx Cystic Fibrosis: Unknown (11/16/2016 12:45:Vandana Epps RN) Gen Hx Huntingtons Chorea: Unknown (11/16/2016 12:45:Vandana Epps RN) Gen Hx Mental Retardation/Autism: Unknown (11/16/2016 12:45:Vandana Epps RN) Gen Hx Tested for Fragile X: Unknown (11/16/2016 12:45:Vandana Epps RN) Gen Hx Other Inher/Chromosomal: Unknown (11/16/2016 12:45:Vandana Epps RN) Gen Hx Maternal Metabolic DO: Unknown (11/16/2016 12:45:Vandana Epps RN) Gen Hx Pt Father or FOB Defect: Unknown (11/16/2016 12:45:Vandana Epps RN) Gen Hx Other Genetic History: Unknown (11/16/2016 12:45:Vandana Epps RN) Gen Hx Drugs/Meds since LMP: Yes (11/16/2016 12:45:Arlin Bauer RN) Gen Hx Medications: PNV (11/16/2016 12:45:Arlin Bauer RN) Details of Genetic History: Family member with congenital heart defect (11/16/2016 12:45:Arlin Bauer RN)
[2017-01-31] MEDS: IBUPROFEN 800 MG TABLET PO SCH ×3 (06:12→21:04)
--- NOTE | 2017-01-31 06:15 | L&D Care Plan ---
LD CARE PLANS Datetime Report Generated by CPN: 01/31/2017 06:15 Datetime: 01/30/2017 04:04 Pain State: Risk For (Ioana Barrera RN) Related To: Labor and Delivery Process; Surgical Procedure; Complication(s) of ; Disease Process; Treatment and Procedures; Post (Ioana Barrera RN) Goal(s): Patients Pain will be Assessed and Managed; Patient will Verbalize Adequate Relief of Pain or the Ability to [place] with Current Pain (Ioana Barrera RN) Interventions: Assess Pain Severity on Scale of 0 (None) to 5 (Severe); Assess Type, Location and Intensity of Pain Each Time Client Reports Discomfort and Notify Provider if Unusal Pain Develops; Encourage Proper Breathing and Relaxation Techniques; Offer Alternatives Such as Repositioning, Calm Environment, Massages, Diversional Activities, Ice Pack, Splinting, and Ambulation; Administer Analgesics as Ordered; Assist with Epidural Placement as Appropriate; Evaluate Therapeutic Effectiveness of Medication and Treatments (Ioana Barrera RN) Outcome: Patient will Report Absence or Relief of Pain Consistent with Established Pain Goal (Ioana Barrera RN) Status: Ongoing (Ioana Barrera RN) Outcome: Patient will have a Decrease in Signs and Symptoms of Discomfort (Ioana Barrera RN) Status: Ongoing (Ioana Barrera RN) Outcome: Pain will be Controlled During Procedures (Ioana Barrera RN) Status: Ongoing (Ioana Barrera RN) Anxiety State: Risk For (Ioana Barrera RN) Related To: Labor and Delivery Process; Surgical Procedure; Perceived or Actual Threat to ; Fear of Unknown; Situational Crisis; Medical Interventions; Significant Life Event (Ioana Barrera RN) Goal(s): Patient will have Decreased Anxiety and be able to Function at Acceptable Levels (Ioana Barrera RN) Interventions: Assess Verbal and Nonverbal Behavioral Indicators of Anxiety; Assist Patient to Identify and Verbalize Symptoms of Anxiety; Identify and Demonstrate Techniques to Control Anxiety; Assist Patient with Coping Mechanisms to Manage Anxiety; Provide Theraputic Touch for the Patient; Explain to Patient, Using a Calm Reassuring Approach and Nonmedical Terms, All Activities, Procedures, and Concerns; Instruct Patient and Family about Post Discharge Care, Limitations, Symptoms to Report and Resources Available (Ioana Barrera RN) Outcome: Patient will Identify, Verbalize and Demonstrate Techniques to Control Anxiety (Ioana Barrera RN) Status: Ongoing (Ioana Barrera RN) Outcome: Patient's Posture, Facial Expressions, Gestures and Activity Level will Reflect Decreased Anxiety (Ioana Barrera RN) Status: Ongoing (Ioana Barrera RN) Outcome: Patient will Verbalize a Sense of Control and/or Acceptance of the Situation (Ioana Barrera RN) Status: Ongoing (Ioana Barrera RN) Outcome: Patient will Identify and Utilize Support Person (Ioana Barrera RN) Status: Ongoing (Ioana Barrera RN) Knowledge Deficit State: Risk For (Ioana Barrera RN) Related To: Labor and Delivery Process; Surgical Procedures; Treatment and Procedures; Impending Alterations in Family Dynamics; Feeding and Infant Care; Community Resources and Available Support Mechanisms (Ioana Barrera RN) Goal(s): Patient will Accurately Verbalize Understanding of Plan of Care and Treatment; Patient and Family will Accurately Verbalize Understanding of the Disease Process (Ioana Barrera RN) Interventions: Assess Motivation and Willingness of Patient/Family to Learn; Assess Preferred Learning Mode: One to One Instruction, Reading, Videos, Group Discussion or Demonstration; Assess Barriers to Learning: Pain, Emotional State, Language Barrier, Cognitive Impairment, Visual or Hearing Deficits; Assess Patient and Family Knowledge of Disease Process, Medications and Treatment; Discuss Therapy and/or Treatment Options, Describe Rationale Behind Management, Therapy and Treatment Recommendations; Instruct Patient and Family on Signs and Symptoms to Report; Instruct Patient and Family on Medication Effects and Side Effects; Provide Appropriate and Timely Education Using Multiple Techniques; Provide Patient and Family with Support Group Information and Resources; Give Clear and Thorough Explanations and Demonstrations (Ioana Barrera RN) Outcome: Patient and Family will Verbalize Understanding of Condition, Treatment and Signs and Symptoms to Report (Ioana Barrera RN) Status: Ongoing (Ioana Barrera RN) Outcome: Patient will Identify Perceived Learning Needs and Express Motivation to Learn (Ioana Barrera RN) Status: Ongoing (Ioana Barrera RN) Outcome: Patient will Verbalize Understanding of Desired Content, and/or Performs Desired Skill Prior to Discharge (Ioana Barrera RN) Status: Ongoing (Ioana Barrera RN) Infection State: Risk For (Ioana Barrera RN) Related To: Surgical Procedures; Invasive Procedures; Altered Tissue Integrity (Ioana Barrera RN) Goal(s): The Patient will be Free of Infection, Vital Signs Stable and Lab Work within Normal Parameters (Ioana Barrera RN) Interventions: Instruct and Reinforce Proper Handwashing, Hygiene, and Care Techniques to Patient and Family; Monitor Vital Signs; Monitor Patient for the Following Signs of Infection: Fever, Abdominal Tenderness, Unusual Discharge; Monitor Aminiotic Fluid, Urine and Lochia for Color and Odor; Observe Wounds, Incisions and Invasive Line Sites for Redness, Drainage and Edema; Assess IV Sites per Hospital Policy; Monitor Lab and Test Results and Notify Provider of Abnormal Findings; Assess Nutritional Status and Promote Good Nutrition (Ioana Barrera RN) Outcome: Patient will Remain Free of Infection (Ioana Barrera RN) Status: Ongoing (Ioana Barrera RN) Outcome: Infection will be Recognized Early to Allow for Prompt Treatment (Ioana Barrera RN) Status: Ongoing (Ioana Barrera RN) Outcome: Patient will have Vital Signs Within Expected Range (Ioana Barerra RN) Status: Ongoing (Ioana Barrera RN) Fluid Volume State: Risk For (Ioana Barrera RN) Related To: Surgical Procedures; Hemorrhage; Disease Process; Anesthesia; Altered Renal Function (Ioana Barrera RN) Goal(s): Patient will Achieve and Maintain a Balanced Fluid Volume Status; Hemodynamically Stable (Ioana Barrera RN) Interventions: Monitor Vital Signs; Auscultate Breath Sounds; Monitor Patient for Skin Turgor, Mucous Membranes, Dry Skin, Weakness, Headaches and Confusion; Provide Oral Fluids as Ordered; Initiate and Maintain Intravenous Fluids as Ordered; Monitor Intake and Output as Indicated Per Patient Status; Accurately Measure Blood Loss; Monitor Lab and Test Results as Obtained and Notify Provider of Abnormal Findings; Monitor Patient's Weight (Ioana Barrera RN) Outcome: Patient will have Clear Lung Sounds (Ioana Barrera RN) Status: Ongoing (Ioana Barrera RN) Outcome: Patient will have Vital Signs within Expected Range (Ioana Barrera RN) Status: Ongoing (Ioana Barrera RN) Outcome: Urine Output will be within Expected Range (Ioana Barrera RN) Status: Ongoing (Ioana Barrera RN) Outcome: Patient will have Minimal Generalized or Upper Extremity Edema (Ioana Barrera RN) Status: Ongoing (Ioana Barrera RN) Injury State: Risk For (Ioana Barrera RN) Related To: Labor and Delivery Process; Anesthesia; Altered Coagulation; Risk to Status; Uteroplacental Perfusion; Decreased Mobility; Hemorrhage, Placenta Previa and or Placental Abruption; Uterine Rupture (Ioana Barrera RN) Goal(s): Patient will Remain Free from Injury (Ioana Barrera RN) Interventions: Monitoring as per Hospital Protocol; Assess Neurological Status; Perform Risk Assessment of Patients with Induction and ; Perform Fall Risk Assessment and Prevention per Hospital Protocol; Perform DVT Risk Assessment and Prophylaxis per Hospital Protocol; Ensure that Oxygen, Suction, and Resuscitation Medications and Equipment are Readily Available; Confirm Patient ID Prior to Procedure(s) and Medication Administration per Hospital Policy (Ioana Barrera RN) Outcome: Successful Fall Risk Prevention (Ioana Barrera RN) Status: Ongoing (Ioana Barrera RN) Outcome: Patient will Deliver without Adverse Sequela (Ioana Barrera RN) Status: Ongoing (Ioana Barrera RN) Outcome: Patient's Neurological Status will Remain Stable (Ioana Barrera RN) Status: Ongoing (Ioana Barrera RN) Impaired Skin Integrity State: Risk For (Ioana Barrera RN) Related To: Vaginal Delivery; Surgical Procedures; Prolonged Bedrest; Altered Tissue Integrity; Invasive Procedures (Ioana Barrera RN) Goal(s): Patient will Maintain Optimal Skin Integrity, Free of Breakdown, Injury or Infection (Ioana Barrera RN) Interventions: Complete Screening for Pressure Ulcer Risk and Initiate Protocol per Hospital Policy; Monitor Site of Skin Impairment for Color Changes, Redness, Swelling, Warmth, Pain or Other Signs of Infection; Encourage and Assist with Position Changes; Monitor Patient's Mobility Status; Provide Adequate Nutrition and Fluids; Teach Patient Appropriate Hygienic Care; Teach Patient/Family Skin Care Management (Ioana Barrera RN) Outcome: Patient will not have Evidence of Injury Such as Skin Breakdown, Scrapes, Cuts, or Bruising (Ioana Barrera RN) Status: Ongoing (Ioana Barrera RN) Outcome: Patient will Report Any Altered Sensation or Pain at Site of Skin Impairment (Ioana Barrera RN) Status: Ongoing (Ioana Barrera RN) Outcome: Patients Incisions and Wounds will be without Signs or Symptoms of Infection (Ioana Barrera RN) Status: Ongoing (Ioana Barrera RN) Outcome: Patient will Demonstrate Understanding of Plan to Heal Skin and Prevent Reinjury and Verbalize Risk Factors (Ioana Barrera RN) Status: Ongoing (Ioana Barrera RN)
[2017-01-31 07:38] LABS: HEMATOCRIT 31.1 % (36.0-47.0); HEMOGLOBIN 10.5 g/dL (12.0-15.5); HGB HCT DIFFERENCE 0.4; MEAN CORPUSCULAR HEMOGLOBIN 29.5 pg (27.0-33.4); MEAN CORPUSCULAR HGB CONC 33.8 g/dL (32.0-36.0); MEAN CORPUSCULAR VOLUME 87 fl (80-97); RED BLOOD COUNT 3.56 10^6/uL (3.72-5.28); RED CELL DISTRIBUTION WIDTH 13.3 % (11.5-14.0); WHITE BLOOD COUNT 8.7 10^3/uL (4.0-10.5)
[2017-01-31] MEDS: DOCUSATE SODIUM 100 MG CAPSULE PO SCH ×2 (09:30→18:09)
[2017-01-31] MEDS: FERROUS SULFATE 325 MG TABLET PO SCH ×2 (09:30→18:09)
[2017-01-31] MEDS: PRENATAL VITAMIN W-O CA NO5/FE FUMARATE/FA CAPSULE PO SCH (09:30)
[2017-01-31] MEDS: FAMOTIDINE 20 MG TABLET PO SCH ×2 (09:30→21:04)
[2017-01-31] MEDS: SENNOSIDES/DOCUSATE 8.6-50 MG 1 EACH TABLET PO SCH (09:30)
--- NOTE | 2017-01-31 11:14 | PDOC PROGRESS REPORT ---
Subjective-OB Subjective: Post Delivery Day: 22 year old. Denies any needs at this time guyanese speaking offers no complaints well per pt. anticipate d/c in AM Physical Exam (OB) Vital Signs: Temp Pulse Resp BP Pulse Ox 98.0 F 62 16 114/51 L 99 01/31/17 07:59 01/31/17 07:59 01/31/17 07:59 01/31/17 07:59 01/31/17 07:59 Intake & Output 01/30/17 01/31/17 02/01/17 06:59 06:59 06:59 Weight 79.65 kg - PIH/Pre-Eclampsia Clonus: Negative - Lochia Lochia Amount: Scant < 10 ml Lochia Color: Rubra/Red - Abdomen Description: Tender, Soft Hernia Present: No Fundal Description: Firm, Midline Fundal Height: u/u - u/2 Objective-Diagnostic Laboratory: 01/31/17 07:16 01/31/17 07:16 WBC 8.7 RBC 3.56 L Hgb 10.5 L Hct 31.1 L MCV 87 MCH 29.5 MCHC 33.8 RDW 13.3 Plt Count 196
[2017-02-01] MEDS: IBUPROFEN 800 MG TABLET PO SCH (06:04)
--- NOTE | 2017-02-01 08:35 | PDOC PROGRESS REPORT ---
Subjective-OB Subjective: Post Delivery Day: 22 year old. Denies any needs at this time. Ready to go home. Physical Exam (OB) Vital Signs: Temp Pulse Resp BP Pulse Ox 98.2 F 71 17 120/69 99 01/31/17 19:31 01/31/17 19:31 01/31/17 19:31 01/31/17 19:31 01/31/17 19:31 - PIH/Pre-Eclampsia Clonus: Negative - Lochia Lochia Amount: Small 10-25 ml Lochia Color: Rubra/Red - Abdomen Description: Soft, Round Hernia Present: No Bowel Sounds: Normoactive Flatus Presence: Present Stool: Yes Fundal Description: Firm, Midline Fundal Height: u/u - u/2 Objective-Diagnostic Laboratory: 01/31/17 07:16
[2017-02-01] MEDS: FERROUS SULFATE 325 MG TABLET PO SCH (09:20)
[2017-02-01] MEDS: DOCUSATE SODIUM 100 MG CAPSULE PO SCH (09:20)
[2017-02-01] MEDS: SENNOSIDES/DOCUSATE 8.6-50 MG 1 EACH TABLET PO SCH (09:20)
[2017-02-01] MEDS: PRENATAL VITAMIN W-O CA NO5/FE FUMARATE/FA CAPSULE PO SCH (09:21)
[2017-02-01] MEDS: FAMOTIDINE 20 MG TABLET PO SCH (09:21)
--- NOTE | 2017-02-01 09:43 | PDOC DISCHARGE SUMMARY ---
Final Diagnosis Discharge Date: 02/01/17 - Final Diagnosis (1) Anemia Is this a current diagnosis for this admission?: Yes (2) Delivery normal Is this a current diagnosis for this admission?: Yes (3) Is this a current diagnosis for this admission?: Yes Discharge Data - Discharge Medication Home Medications: Vit#96/Ferrous Fum/FA [ Tablet] 1 tab PO DAILY 05/25/15 Gestational Age: 37.5 wks Reason(s) for Admission: Onset of Labor Procedures: Ultrasound Intrapartum Procedure(s): Spontaneous Vaginal Delivery - Mark Data Baby 1 Male at 1 minute: 8 at 5 minutes: 9 Weight: 2.58 kg Home with Mother: Yes Complications: No - Diagnosis Test Laboratory: Temp Pulse Resp BP Pulse Ox 98.0 F 62 16 119/69 98 02/01/17 09:01 02/01/17 09:01 02/01/17 09:01 02/01/17 09:01 02/01/17 09:01 01/30/17 01/30/17 01/31/17 03:41 04:07 07:16 RBC 3.83 3.56 L Hgb 11.4 L 10.5 L Hct 33.1 L 31.1 L Urine Opiates Screen NEGATIVE - Discharge information/Instructions Discharge Activity: Activity As Tolerated, Balance Activity w/Rest, Pelvic Rest , Slowly Increase Activity, No tub bath Discharge Diet: Regular Disposition: HOME, SELF-CARE Follow up with: [facility] in: 4, Weeks
[2017-02-01 11:31] VITALS: BP 115/57
== END 2017-02-01 12:01 | disposition home or self-care (01) | DRG 775 ==
LOC: LC 03:28 → LR 03:57 → 2S 08:05
PROVIDERS: ADMIT Obstetrics & Gynecology; ATTEND Obstetrics & Gynecology
PROC: 10E0XZZ Delivery of Products of Conception, External Approach (ICD-10-PCS; principal; 2017-01-30)
PROC: 10907ZC Drainage of Amniotic Fluid, Therapeutic from Products of Conception, Via Natural or Artificial Opening (ICD-10-PCS; 2017-01-30)
PROC: 4A1HXCZ Monitoring of Products of Conception, Cardiac Rate, External Approach (ICD-10-PCS; 2017-01-30)
DX: O62.3 Precipitate labor (principal); O99.02 Anemia complicating childbirth; D64.9 Anemia, unspecified; Z3A.37 37 weeks gestation of pregnancy; Z37.0 Single live birth
CPT/HCPCS: 36415; 80307; 81005; 85025; 85027; 86592; 86850; 86900; 86901; 94760; J0290; J2370; J2540; J2590; J3010; J3490

== ENCOUNTER 2019-08-23 20:19 | Emergency (ER) | payer MEDICAID, OTHER ==
--- NOTE | 2019-08-23 21:55 | ER Document Report ---
ED Medical Screen (RME) - General Chief Complaint: Vag Bleeding, +preg <12wks Stated Complaint: VAGINAL BLEEDING Time Seen by Provider: 08/23/19 21:52 Mode of Arrival: Ambulatory Information source: Patient Notes: 24-year-old female presents to ED for complaint of pelvic pain and vaginal bleeding. She states she found her today she was . She has had previous children. She is alert oriented respirations regular and unlabored speaking in full sentences. She states the bleeding has stopped but she still has the pain. She states she has not had a period in over a year. I have greeted and performed a rapid initial assessment of this patient. A comprehensive ED assessment and evaluation of the patient, analysis of test results and completion of medical decision making process will be conducted by an additional ED providers. TRAVEL OUTSIDE OF THE [place] IN LAST 30 DAYS: No - Related Data Allergies/Adverse Reactions: No Known Allergies Allergy (Verified 08/23/19 21:51) Physical Exam - Vital signs Vitals: Temp Pulse Resp BP Pulse Ox 98.2 F 55 L 20 137/70 H 100 08/23/19 20:47 08/23/19 20:47 08/23/19 20:47 08/23/19 20:47 08/23/19 20:47 Course - Vital Signs Vital signs: Temp Pulse Resp BP Pulse Ox 98.2 F 55 L 20 137/70 H 100 08/23/19 20:47 08/23/19 20:47 08/23/19 20:47 08/23/19 20:47 08/23/19 20:47
[2019-08-23 22:42] LABS: ABSOLUTE EOSINOPHILS # (AUTO) 0.1 10^3/uL (0.0-0.6); ABSOLUTE LYMPHOCYTES (AUTO) 2.3 10^3/uL (0.5-4.7); ABSOLUTE MONOCYTES (AUTO) 0.7 10^3/uL (0.1-1.4); ABSOLUTE NEUT (AUTO) 5.5 10^3/uL (1.7-8.2); BASOPHILS % (AUTO) 0.5 % (0-2); EOSINOPHILS % (AUTO) 0.8 % (0-6); HEMATOCRIT 38.6 % (36.0-47.0); HEMOGLOBIN 12.8 g/dL (12.0-15.5); LYMPHOCYTES % (AUTO) 26.5 % (13-45); MEAN CORPUSCULAR HEMOGLOBIN 29.2 pg (27.0-33.4); MEAN CORPUSCULAR HGB CONC 33.2 g/dL (32.0-36.0); MEAN CORPUSCULAR VOLUME 88 fl (80-97); MONOCYTES % (AUTO) 8.2 % (3-13); PLATELET COUNT 226 10^3/uL (150-450); RED CELL DISTRIBUTION WIDTH 14.2 % (11.5-14.0); TOTAL CELLS COUNTED % (AUTO) 100 %; WHITE BLOOD COUNT 8.5 10^3/uL (4.0-10.5)
[2019-08-23 22:52] LABS: APPEARANCE,URINE SLIGHTLY-CLOUDY; BILIRUBIN,URINE NEGATIVE (NEGATIVE); COLOR,URINE YELLOW; GLUCOSE, URINE NEGATIVE (NEGATIVE); KETONES,URINE 80 mg/dL (NEGATIVE); PROTEIN,URINE NEGATIVE (NEGATIVE); URINE SPECIFIC GRAVITY 1.017; UROBILINOGEN,URINE NEGATIVE mg/dL (<2.0)
[2019-08-23 22:53] LABS: ALBUMIN 4.6 g/dL (3.5-5.0); ALKALINE PHOSPHATASE 82 U/L (38-126); ANION GAP 14 (5-19); ASPARTATE AMINO TRANSFERASE 25 U/L (14-36); BILIRUBIN,DIRECT 0.1 mg/dL (0.0-0.4); BILIRUBIN,TOTAL 0.4 mg/dL (0.2-1.3); BLOOD UREA NITROGEN 15 mg/dL (7-20); CALCIUM 10.1 mg/dL (8.4-10.2); CARBON DIOXIDE 22 mmol/L (22-30); CHLORIDE 105 mmol/L (98-107); GLUCOSE 83 mg/dL (75-110); POTASSIUM 4.1 mmol/L (3.6-5.0); TOTAL PROTEIN 7.7 g/dL (6.3-8.2)
--- NOTE | 2019-08-23 23:21 | RADIOLOGY REPORT (SQ) ---
US PELVIS EXAM DATE: 08/23/2019 9:55 PM CDT HISTORY: Early . Pelvic pain. COMPARISON: None. TECHNIQUE: Grayscale, color Doppler, and spectral Doppler ultrasound images of the pelvis were obtained. FINDINGS: There is an irregular gestational sac measuring 0.94 cm corresponding to 5 weeks 5 days of . No pole or yolk sac is seen. The cervix is closed and measures 2.6 cm in length. Both ovaries are normal in size and contain normal follicles, with the right ovary measuring 2.7 x 2.0 x 2.2 cm, and the left ovary measuring 3.4 x 2.4 x 2.6 cm. Normal color Doppler blood flow is seen in both ovaries. Mild pelvic free fluid. IMPRESSION: Irregular gestational sac corresponding to 5 weeks 5 days of . No pole is seen at this time. Recommend correlation with hCG values and short-term follow-up imaging.
--- NOTE | 2019-08-24 01:52 | ER Document Report ---
ED GI/ - General Chief Complaint: Vag Bleeding, +preg <12wks Stated Complaint: VAGINAL BLEEDING Time Seen by Provider: 08/23/19 21:52 Primary Care Provider: [facility] [Provider Group] - Follow up as needed Mode of Arrival: Ambulatory Notes: Patient is a 24-year-old female that comes emergency department for chief complaint of lower abdominal cramping and vaginal bleeding that started on Tuesday. She has had intermittent cramping and bleeding since then. She states she has not had a menstrual cycle for about 1 year now. She denies vomiting, fever, dysuria, no current bleeding. She is sexually active. She denies any surgeries, daily medications, or diagnosed medical history. TRAVEL OUTSIDE OF THE [place] IN LAST 30 DAYS: No - Related Data Allergies/Adverse Reactions: No Known Allergies Allergy (Verified 08/23/19 21:51) Past Medical History - General Information source: Patient - Social History Smoking Status: Never Smoker Frequency of alcohol use: None Drug Abuse: None Lives with: Family Family History: Reviewed & Not Pertinent Patient has suicidal ideation: No Patient has homicidal ideation: No Surgical Hx: Negative - Immunizations Immunizations up to date: Yes Hx Diphtheria, Pertussis, Tetanus Vaccination: Yes Review of Systems - Review of Systems Constitutional: No symptoms reported EENT: No symptoms reported Cardiovascular: No symptoms reported Respiratory: No symptoms reported Gastrointestinal: See HPI Genitourinary: See HPI Female Genitourinary: See HPI Musculoskeletal: No symptoms reported Skin: No symptoms reported Hematologic/Lymphatic: No symptoms reported Neurological/Psychological: No symptoms reported Physical Exam - Vital signs Vitals: Temp Pulse Resp BP Pulse Ox 98.2 F 55 L 20 137/70 H 100 08/23/19 20:47 08/23/19 20:47 08/23/19 20:47 08/23/19 20:47 08/23/19 20:47 - Notes Notes: GENERAL: Alert, interacts well. No acute distress. HEAD: Normocephalic, atraumatic. EYES: Pupils equal, round, and reactive to light. Extraocular movements intact. ENT: Oral mucosa moist, tongue midline. Oropharynx unremarkable. Airway patent. NECK: Full range of motion. Supple. Trachea midline. LUNGS: Clear to auscultation bilaterally, no wheezes, rales, or rhonchi. No respiratory distress. HEART: Regular rate and rhythm. No murmur ABDOMEN: Soft, non-tender. Non-distended. Bowel sounds present in all 4 quadrants. GENITOURINARY: Deferred EXTREMITIES: Moves all 4 extremities spontaneously. No edema, normal radial and dorsalis pedis pulses bilaterally. No cyanosis. BACK: no cervical, thoracic, lumbar midline tenderness. No saddle anesthesia, normal distal neurovascular exam. Moves all extremities in full range of motion. NEUROLOGICAL: Alert and oriented x3. Normal speech. Cranial nerves II through XII grossly intact. PSYCH: Normal affect, normal mood. SKIN: Warm, dry, normal turgor. No rashes or lesions noted. Course - Re-evaluation Re-evalutation: Patient with a soft benign abdomen and no current complaints. Parents test is positive. hCG is 500s. Despite hCG only being in the 500s the intrauterine pr egnancy was still visualized at 5 weeks 5 days, no specific details otherwise. Still could be early . CBC unremarkable, chemistry unremarkable, urinalysis nonspecific. This does show ketones but patient denies vomiting, states she is taking p.o. well, did decline IV fluids. Patient reporting she is B+ blood type, she has multiple test here confirming that. RhoGam not indicated. I discussed results at length. Because of patient's cramping, bleeding, slightly strange results it is possible she is miscarrying. I did however discuss that this is not definite and this needs to be followed closely with serial testing. She states she will attempt to follow-up with TELETYPESETTER MONITOR and other pratt she will return here. I did discuss expectations, possibilities, and return precautions in detail. Patient and significant other state understanding and agreement. Stable at time of discharge. - Vital Signs Vital signs: Temp Pulse Resp BP Pulse Ox 98.1 F 78 14 123/68 98 08/24/19 02:09 08/24/19 02:09 08/24/19 02:09 08/24/19 02:09 08/24/19 02:09 - Laboratory Result Diagrams: 08/23/19 22:03 08/23/19 22:03 Laboratory results interpreted by me: 08/23/19 08/23/19 08/23/19 22:03 22:03 22:03 RDW 14.2 H Beta HCG, Quant 508.65 H Urine Ketones 80 H Leukocyte Esterase Rfl SMALL H Discharge - Discharge Clinical Impression: Lower abdominal pain, Vaginal bleeding affecting early Condition: Stable Disposition: HOME, SELF-CARE Additional Instructions: Based on your symptoms, labs, and ultrasound it is still uncertain at this time whether you are developing a miscarriage or if this is simply early in your with bleeding. I do recommend pelvic rest, avoid intense physical activity such as running, lifting, sexual intercourse. Take Tylenol for pain. I do recommend that in the next 72 hours you have a recheck of your hormone and additional evaluation, either follow-up with the referral or return here for additional evaluation. Return also if you have very heavy bleeding, dizziness, passing out, severe pain, or any other concerning or worsening symptoms. Forms: Return to Work Referrals: [facility] [Provider Group] - Follow up as needed
[2019-08-24 02:14] VITALS: BP 123/68
== END 2019-08-24 02:14 | disposition home or self-care (01) ==
LOC: ER 20:19
DX: O20.9 Hemorrhage in early pregnancy, unspecified (principal); R10.30 Lower abdominal pain, unspecified; Z3A.01 Less than 8 weeks gestation of pregnancy
CPT/HCPCS: 36415; 76817; 80053; 81001; 84702; 85025; 87086; 99284

== ENCOUNTER 2020-02-10 21:07 | Emergency (ER) | payer MEDICAID ==
--- NOTE | 2020-02-10 21:35 | ER Document Report ---
ED Medical Screen (RME) - General Chief Complaint: Blood Pressure Problem Stated Complaint: BLOOD PRESSURE ISSUES,DIFFICULTY BREATHING,HEADACH Time Seen by Provider: 02/10/20 21:31 Notes: HPI: 25-year-old female who is approximately 29 weeks with twins presenting for an episode of elevated blood pressure accompanied by shortness of breath that lasted for several minutes at a time 3 separate times tonight also complaining of a mild generalized headache. Denies nausea vomiting. Denies abdominal pain, denies vaginal bleeding or discharge. States she has felt the baby is moving. Patient denies visual change or loss. Denies chest pain. She denies shortness of breath at this time. States she was worried about her blood pressure in relation to the shortness of breath. States they did seem to occur around the same time I have greeted and performed a rapid initial assessment of this patient. A comprehensive ED assessment and evaluation of the patient, analysis of test results and completion of the medical decision making process will be conducted by additional ED providers PHYSICAL EXAMINATION: Gravid uterus palpable. No abdominal pain on palpation lung sounds are clear to auscultation. Not tachycardic I have greeted and performed a rapid initial assessment of this patient. A comprehensive ED assessment and evaluation of the patient, analysis of test results and completion of medical decision making process will be conducted by an additional ED providers. TRAVEL OUTSIDE OF THE [place] IN LAST 30 DAYS: No - Related Data Allergies/Adverse Reactions: No Known Allergies Allergy (Verified 08/23/19 21:51) Past Medical History - Social History Chew tobacco use (# tins/day): No Frequency of alcohol use: None Drug Abuse: None - Immunizations Immunizations up to date: Yes Hx Diphtheria, Pertussis, Tetanus Vaccination: Yes Physical Exam - Vital signs Vitals: Temp Pulse Resp BP Pulse Ox 98.6 F 90 16 137/75 H 98 02/10/20 21:12 02/10/20 21:12 02/10/20 21:12 02/10/20 21:12 02/10/20 21:12 Course - Vital Signs Vital signs: Temp Pulse Resp BP Pulse Ox 98.6 F 90 16 137/75 H 98 02/10/20 21:12 02/10/20 21:12 02/10/20 21:12 02/10/20 21:12 02/10/20 21:12
[2020-02-10 23:24] LABS: ABSOLUTE LYMPHOCYTES (AUTO) 1.7 10^3/uL (0.5-4.7); ABSOLUTE NEUT (AUTO) 6.9 10^3/uL (1.7-8.2); BASOPHILS % (AUTO) 0.4 % (0-2); EOSINOPHILS % (AUTO) 0.5 % (0-6); HEMATOCRIT 29.4 % (36.0-47.0); HEMOGLOBIN 10.5 g/dL (12.0-15.5); LYMPHOCYTES % (AUTO) 17.9 % (13-45); MEAN CORPUSCULAR HEMOGLOBIN 31.9 pg (27.0-33.4); MEAN CORPUSCULAR HGB CONC 35.9 g/dL (32.0-36.0); MEAN CORPUSCULAR VOLUME 89 fl (80-97); MONOCYTES % (AUTO) 9.9 % (3-13); PLATELET COUNT 235 10^3/uL (150-450); RED CELL DISTRIBUTION WIDTH 13.2 % (11.5-14.0); SEGMENTED NEUTROPHILS % (AUTO) 71.3 % (42-78); TOTAL CELLS COUNTED % (AUTO) 100 %; WHITE BLOOD COUNT 9.7 10^3/uL (4.0-10.5)
[2020-02-10 23:33] LABS: APPEARANCE,URINE SLIGHTLY-CLOUDY; BILIRUBIN,URINE NEGATIVE (NEGATIVE); COLOR,URINE YELLOW; GLUCOSE, URINE >=500 mg/dL (NEGATIVE); KETONES,URINE NEGATIVE (NEGATIVE); LEUKOCYTE ESTERASE,URINE NEGATIVE (NEGATIVE); NITRITE,URINE NEGATIVE (NEGATIVE); PROTEIN,URINE NEGATIVE (NEGATIVE); URINE SPECIFIC GRAVITY 1.008; UROBILINOGEN,URINE NEGATIVE mg/dL (<2.0)
[2020-02-10] MEDS ORDERED: NORMAL SALINE 1000 ML 1,000 ML IV ONE (23:36)
[2020-02-10] MEDS ORDERED: METOCLOPRAMIDE HCL INJ/PF 10 MG/2 ML SDV IV ONE (23:36)
[2020-02-10] MEDS ORDERED: BUTALB/ACETAMINOPHEN/CAFFEINE 1 TAB EACH PO ONE (23:37)
[2020-02-10 23:48] LABS: ALBUMIN 3.4 g/dL (3.5-5.0); ALKALINE PHOSPHATASE 104 U/L (38-126); ASPARTATE AMINO TRANSFERASE 20 U/L (14-36); BILIRUBIN,TOTAL 0.2 mg/dL (0.2-1.3); BLOOD UREA NITROGEN 7 mg/dL (7-20); CALCIUM 9.3 mg/dL (8.4-10.2); CARBON DIOXIDE 24 mmol/L (22-30); CHLORIDE 107 mmol/L (98-107); GLUCOSE 105 mg/dL (75-110); POTASSIUM 3.8 mmol/L (3.6-5.0); TOTAL PROTEIN 6.3 g/dL (6.3-8.2)
[2020-02-10 23:54] LABS: ANION GAP 4 (5-19)
--- NOTE | 2020-02-11 00:20 | ER Document Report ---
ED General - General Chief Complaint: Blood Pressure Problem Stated Complaint: BLOOD PRESSURE ISSUES,DIFFICULTY BREATHING,HEADACH Time Seen by Provider: 02/10/20 21:31 Mode of Arrival: Ambulatory Information source: Patient Notes: Patient is a 25-year-old female presenting to the emergency department chief complaint of headache, shortness of breath and possible elevated blood pressure. Patient reports she is 29 weeks with twins. She has had a normal thus far. She is a G3, P2. She denies any abdominal pain, vaginal bleeding or vaginal discharge. She reports a history of migraines, states she usually takes BC powder but with she is unable to take this. She states this headache feels like a typical migraine headache. She reports at home she felt a sudden shortness of breath, she took her blood pressure during this episode and noted it to be significantly elevated, repeat blood pressures at home were very low. Likely her blood pressure cuff is not accurate. TRAVEL OUTSIDE OF THE [place] IN LAST 30 DAYS: No - Related Data Allergies/Adverse Reactions: No Known Allergies Allergy (Verified 08/23/19 21:51) Past Medical History - General Information source: Patient - Social History Smoking Status: Never Smoker Chew tobacco use (# tins/day): No Frequency of alcohol use: None Drug Abuse: None Family History: Reviewed & Not Pertinent Patient has suicidal ideation: No Patient has homicidal ideation: No - Medical History Medical History: Negative Surgical Hx: Negative - Immunizations Immunizations up to date: Yes Hx Diphtheria, Pertussis, Tetanus Vaccination: Yes Review of Systems - Review of Systems Respiratory: Short of breath Neurological/Psychological: Headaches -: Yes All other systems reviewed and negative Physical Exam - Vital signs Vitals: Temp Pulse Resp BP Pulse Ox 98.6 F 90 16 137/75 H 98 02/10/20 21:12 02/10/20 21:12 02/10/20 21:12 02/10/20 21:12 02/10/20 21:12 - Notes Notes: PHYSICAL EXAMINATION: GENERAL: Well-appearing, well-nourished and in no acute distress. HEAD: Atraumatic, normocephalic. EYES: Pupils equal round and reactive to light, extraocular movements intact, conjunctiva are normal. ENT: Nares patent, oropharynx clear without exudates. Moist mucous membranes. NECK: Normal range of motion, supple without lymphadenopathy LUNGS: Breath sounds clear to auscultation bilaterally and equal. No wheezes r ales or rhonchi. HEART: Regular rate and rhythm without murmurs ABDOMEN: Soft, nontender, gravid abdomen. No guarding, no rebound. No masses appreciated. Female : deferred Musculoskeletal: Normal range of motion, no pitting or edema. No cyanosis. NEUROLOGICAL: Cranial nerves grossly intact. Normal speech, normal gait. Normal sensory, motor exams PSYCH: Normal mood, normal affect. SKIN: Warm, Dry, normal turgor, no rashes or lesions noted. Course - Re-evaluation Re-evalutation: 02/11/20 00:19 Patient appears well, nontoxic, vital signs within normal limits today. She denies any chest pain. She states her shortness of breath was brief and has resolved. She is currently complaining of a headache 4/5. Labs are currently pending, I added on a magnesium level. Will give patient Reglan for nausea, IV fluids and treat her headache with Fioricet. heart tones were obtained, see nursing notes, they were within normal limits. Headache is completely resolved after administration of IV fluids, Reglan and Fioricet. Patient will be discharged home at this time with follow-up plans to see FOLLOW UP REP. - Vital Signs Vital signs: Temp Pulse Resp BP Pulse Ox 98.6 F 90 17 102/56 L 99 02/10/20 21:12 02/10/20 21:12 02/11/20 02:01 02/11/20 02:01 02/11/20 02:01 - Laboratory Result Diagrams: 02/10/20 23:00 02/10/20 23:00 Laboratory results interpreted by me: 02/10/20 02/10/20 02/10/20 23:00 23:00 23:00 RBC 3.30 L Hgb 10.5 L Hct 29.4 L Sodium 135.0 L Anion Gap 4 L Creatinine 0.35 L Albumin 3.4 L Urine Glucose (UA) >=500 H Discharge - Discharge Clinical Impression: Headache Qualifiers: Headache type: unspecified Headache chronicity pattern: unspecified pattern Intractability: not intractable Qualified Code(s): R51 - Headache Condition: Stable Disposition: HOME, SELF-CARE Additional Instructions: Your blood pressure was normal today in the emergency department. Please f ollow-up with your FOLLOW UP REP regarding today's visit. Use the medication that I have prescribed if you develop a severe headache. Drink plenty of fluids. Return to the emergency department with any new or worsening symptoms. Prescriptions: Butalb/Acetaminophen/Caffeine [Fioricet (50-325-40 mg) Tablet] 1 tab PO Q4H PRN #20 tab PRN Reason:
[2020-02-11 02:06] VITALS: BP 102/56
== END 2020-02-11 02:30 | disposition home or self-care (01) ==
LOC: ER 21:07
DX: O26.893 Other specified pregnancy related conditions, third trimester (principal); R51 Headache; R06.02 Shortness of breath; O30.003 Twin pregnancy, unspecified number of placenta and unspecified number of amniotic sacs, third trimester; Z3A.29 29 weeks gestation of pregnancy; Z86.69 Personal history of other diseases of the nervous system and sense organs
CPT/HCPCS: 99284; 96361; 96374; 36415; 83735; 85025; 80053; 81001; J3490; J2765; J7030

== ENCOUNTER 2020-03-28 12:51 | Inpatient (IN) | payer MEDICAID ==
[~2020-03-28 12:51] MED LIST: LIDOCAINE 2% INJ-PF (20 MG/ML) 2 ML AMPUL ONE
[2020-03-28 13:31] LABS: APPEARANCE,URINE CLEAR; BILIRUBIN,URINE NEGATIVE (NEGATIVE); COLOR,URINE STRAW; GLUCOSE, URINE NEGATIVE (NEGATIVE); KETONES,URINE NEGATIVE (NEGATIVE); LEUKOCYTE ESTERASE,URINE NEGATIVE (NEGATIVE); NITRITE,URINE NEGATIVE (NEGATIVE); PROTEIN,URINE NEGATIVE (NEGATIVE); URINE SPECIFIC GRAVITY 1.006; UROBILINOGEN,URINE NEGATIVE mg/dL (<2.0)
--- NOTE | 2020-03-28 13:39 | Admission Physical ---
Datetime Report Generated by CPN: 03/28/2020 13:39 CURRENT ADMISSION Chief Complaint: Uterine Contractions Indication for Induction: Not Applicable Admit Impression : Active Labor Admit Plan: Admit to Unit ALLERGIES Medication Allergies: No Known Allergies (08/23/2019) OBSTETRICAL HISTORY : 3 Para: 2 Term: 2 : 0 SAB: 0 IAB: 0 Ectopic: 0 Livin Cesareans: 0 VBACs: 0 Multiple Births: 0 SEE RECORDS Other Illicit Drugs: No PHYSICAL EXAM General: Normal HEENT: Normal Neurologic: Normal Thyroid: Normal Heart: Normal Lungs: Normal Breast: Deferred Back: Normal Abdomen: Normal Genitourinary Exam: Normal Extremities: Normal DTRs: Normal Pelvic Type: Adequate Vital Signs: Reviewed VAGINAL EXAM Dilatation: 7 Effacement: 90 Station: -2 MEMBRANES Pooling: Negative Membranes: Intact FETUS A Monitoring: External US FHR- Baseline: 130 Variability: Moderate 6-25bpm Decelerations: None FHR Category: Category I Presentation: Vertex Admit Comment: Will admit and proceed with c section for interest. PLANS FOR LABOR AND DELIVERY Circumcision: N/A INFORMED CONSENT Signature: with User ID: [email or web address]
[2020-03-28] MEDS ORDERED: CEFAZOLIN SODIUM 2 GM in DEXTROSE 5%-WATER 50 ML IV PRN (13:44)
[2020-03-28] MEDS ORDERED: RINGERS SOLUTION,LACTATED 1,000 ML IV ONE (13:45)
[2020-03-28 13:46] LABS: URINE AMPHETAMINES SCREEN NEGATIVE; URINE BARBITURATES SCREEN NEGATIVE; URINE BENZODIAZEPINES SCREEN NEGATIVE; URINE COCAINE SCREEN NEGATIVE; URINE MARIJUANA (THC) SCREEN NEGATIVE; URINE METHADONE SCREEN NEGATIVE; URINE PHENCYCLIDINE SCREEN NEGATIVE
[2020-03-28 13:48] LABS: UR PRO/CREAT RATIO RESULT 0.5 mg/mg (0.0-0.2); URINE CREATININE 31.4 mg/dL (16-327); URINE PROTEIN 14.9 mg/dL (<12)
[2020-03-28 14:03] LABS: ABSOLUTE LYMPHOCYTES (AUTO) 1.6 10^3/uL (0.5-4.7); ABSOLUTE MONOCYTES (AUTO) 0.7 10^3/uL (0.1-1.4); ABSOLUTE NEUT (AUTO) 5.8 10^3/uL (1.7-8.2); BASOPHILS % (AUTO) 0.2 % (0-2); EOSINOPHILS % (AUTO) 0.3 % (0-6); HEMATOCRIT 32.8 % (36.0-47.0); HEMOGLOBIN 11.7 g/dL (12.0-15.5); LYMPHOCYTES % (AUTO) 19.9 % (13-45); MEAN CORPUSCULAR HEMOGLOBIN 30.9 pg (27.0-33.4); MEAN CORPUSCULAR HGB CONC 35.5 g/dL (32.0-36.0); MEAN CORPUSCULAR VOLUME 87 fl (80-97); MONOCYTES % (AUTO) 8.5 % (3-13); PLATELET COUNT 199 10^3/uL (150-450); RED BLOOD COUNT 3.77 10^6/uL (3.72-5.28); RED CELL DISTRIBUTION WIDTH 13.2 % (11.5-14.0); SEGMENTED NEUTROPHILS % (AUTO) 71.1 % (42-78); TOTAL CELLS COUNTED % (AUTO) 100 %; WHITE BLOOD COUNT 8.2 10^3/uL (4.0-10.5)
[2020-03-28 14:21] LABS: ALKALINE PHOSPHATASE 188 U/L (38-126); ASPARTATE AMINO TRANSFERASE 25 U/L (14-36); BILIRUBIN,TOTAL 0.2 mg/dL (0.2-1.3); BLOOD UREA NITROGEN 5 mg/dL (7-20); CALCIUM 8.6 mg/dL (8.4-10.2); CARBON DIOXIDE 22 mmol/L (22-30); GLUCOSE 73 mg/dL (75-110); POTASSIUM 4.2 mmol/L (3.6-5.0); TOTAL PROTEIN 5.8 g/dL (6.3-8.2); URIC ACID 3.9 mg/dL (2.5-6.2)
[2020-03-28 14:26] LABS: CHLORIDE 107 mmol/L (98-107)
[2020-03-28 14:32] LABS: ANION GAP 4 (5-19)
[2020-03-28] MEDS ORDERED: CEFAZOLIN 1 GM/D5W RTU 2 GM/100 ML RTUPB IV ONE (15:16)
[2020-03-28] MEDS ORDERED: GLYCOPYRROLATE INJ 0.4 MG/2 ML VIAL ONE (15:46)
[2020-03-28] MEDS ORDERED: PHENYLEPHRINE HCL INJ/PF 10 MG/1 ML SDV ONE (15:46)
[2020-03-28] MEDS ORDERED: KETOROLAC TROMETHAMINE INJ/PF 30 MG/1 ML SDV ONE (15:46)
[2020-03-28] MEDS ORDERED: OXYTOCIN 10 UNIT/ML VIAL ONE (15:46)
[2020-03-28] MEDS ORDERED: MIDAZOLAM 2 MG/2 ML INJ ONE (15:47)
[2020-03-28] MEDS ORDERED: ONDANSETRON HCL INJ/PF 4 MG/2 ML SDV ONE (15:47)
[2020-03-28] MEDS ORDERED: OXYTOCIN/0.9 % SODIUM CHLORIDE 30 UNIT/500 ML RTUINJ IV PRN (15:47)
[2020-03-28] MEDS ORDERED: OXYCODONE-ACETAMINOPHEN 5-325 MG TABLET PO PRN (15:47)
[2020-03-28] MEDS ORDERED: DIPH/PERTUSS(ACELL)/TETANUS VAC/PF 0.5 ML SYR (>=10YO) IM PRN (15:47)
[2020-03-28] MEDS ORDERED: ACETAMINOPHEN 325 MG TABLET PO PRN (15:47)
[2020-03-28] MEDS ORDERED: PROMETHAZINE HCL INJ 25 MG/1 ML VIAL IV PRN (15:47)
[2020-03-28] MEDS ORDERED: ACETAMINOPHEN 1,000 MG/100 ML RTUPB IV PRN (15:47)
[2020-03-28] MEDS ORDERED: RINGERS SOLUTION,LACTATED 1,000 ML IV PRN (15:47)
[2020-03-28] MEDS ORDERED: FENTANYL CITRATE INJ/PF 100 MCG/2 ML AMPUL ONE ×3 (15:47→18:21)
[2020-03-28] MEDS ORDERED: OXYTOCIN/0.9 % SODIUM CHLORIDE 30 UNIT/500 ML RTUINJ ONE (15:47)
[2020-03-28] MEDS ORDERED: MEASLES,MUMPS&RUBELLA VACC/PF 0.5 ML VIAL SUBCUT PRN (15:47)
[2020-03-28] MEDS ORDERED: SIMETHICONE 80 MG TAB.CHEW PO PRN (15:47)
[2020-03-28] MEDS ORDERED: ACETAMINOPHEN 1,000 MG/100 ML RTUPB IV ONE (15:47)
--- NOTE | 2020-03-28 17:12 | Operative Report ---
Operative Report DATE OF SURGERY: 03/28/20 PREOPERATIVE DIAGNOSIS: Twins in transverse breech presentation with maternal c ervix 7 cm dilated POSTOPERATIVE DIAGNOSIS: Same OPERATION: Primary would be a low transverse uterine incision SURGEON: ALDAIR TOWNSEND ANESTHESIA: Spinal TISSUE REMOVED OR ALTERED: Placenta COMPLICATIONS: None ESTIMATED BLOOD LOSS: 250 INTRAOPERATIVE FINDINGS: Twin female infants normal uterus tubes and ovaries PROCEDURE: Patient was taken to the OR and placed in supine position after her spinal anesthesia. She is prepared and draped in sterile fashion. Jo was placed for drainage of the bladder. Low transverse incision was made and carried down the level of the fascia. The fascial incision was made with knife and extended bilaterally with curved Pro scissors. The fascia was off the rectus muscles using sharp and blunt dissection. The rectus muscles are in the midline. The peritoneum was entered without incident. Bladder blade was placed in uterine segment was identified. A low transverse incision was made creating a bladder flap. Bladder blade was placed low transverse uterine incision was made with the knife and extended with fingertips. The baby was delivered with some fundal pressure. Baby A was delivered in a anjali breech fashion. Mouth and nose were suctioned free. The cord is doubly clamped and cut. Baby is passed off to the highway traffic control technician in attendance. Baby B was also delivered in a anjali breech fashion. Neither baby was presenting in exactly a anjali breech fashion both were presenting more in a transverse fashion and were turned to anjali breech. The placenta was manually extracted with trailing membranes. The uterus was externalized wrapped in a moist lap sponge. Uterine contents wiped free. Uterus was closed with a running locking layer of 0 chromic suture using the second layer to imbricate the first completing a double layer closure of the uterus. The serosa was closed with a running 2-0 chromic stitch. The pelvis was irrigated and suctioned free of fluid the uterus was re placed in the abdomen. The abdominal wall peritoneum was closed with running 2- 0 chromic stitch. Fascia was closed with a running 0 Vicryl in 2 segments. Regan's layer was brought together with 0 plain gut stitch and the skin was closed with running subcuticular 4-0 undyed Vicryl stitch. The wound was dressed mother and baby did well.
--- NOTE | 2020-03-28 18:14 | Delivery Summary ---
Del Sum A-C Datetime Report Generated by CPN: 03/28/2020 18:14 DELIVERY PERSONNEL DELIVERY PERSONNEL: [id number] Delivery Doctor:: Estelita Cabrera MD WINDOW SHADE INSTALLER:: Magen Garner CRNA Labor and Delivery Nurse:: Kelley Deluca RN Regional Truck Driver:: Idania Harper RN Neonatal Nurse Practitioner:: ERMA Oden Nursery Nurse:: Shante Benitez RN Nursery Nurse:: Bhavya Denson RN Supervisory Geographer/RESEARCH ADVISOR: Chelly Joshua CST Supervisory Geographer/RESEARCH ADVISOR: Tisha Ballard PASTEURIZER MATERNAL INFORMATION Delivery Anesthesia: Spinal Medications After Delivery: Pitocin Bolus-Please Comment; Pitocin 30 Units in 500ml NS/D5W Delivery QBL: 2080 Maternal Complications: None LABOR SUMMARY EDC: 04/25/2020 00:00 No. Babies in Womb: 2 Attempted: No Labor Anesthesia: None LABOR INFORMATION Reason for Induction: Not Applicable Oxytocin: N/A Group B Beta Strep: unknown Antibiotics # of Doses: 1 Antibiotics Time of Last Dose: 1540 Name of Antibiotic Given: Ancef 2 gm Steroids Given: None Reason Steroids Not Administered: Not Applicable MEMBRANES Membranes Rupture Method: Artificial Rupture of Membranes: 03/28/2020 16:31 Length of Rupture (hr): 0.00 Amniotic Fluid Color: Clear Amniotic Fluid Amount: Large Amniotic Fluid Odor: Normal STAGES OF LABOR Stage 3 hr: 0 Stage 3 min: 2 CSECTION DELIVERY Primary Indication: Multiple Gestation Secondary Indication: Transverse/Complex Presentation CSection Urgency: Non-Scheduled CSection Incidence: Primary CSection Incision: Lower Uterine Transverse BABY A INFORMATION Delivery Date/Time: 03/28/2020 16:31 Method of Delivery: Nurse Controlled Delivery: No : N/A Forceps: N/A Vacuum Extraction: N/A Shoulder Dystocia : No PRESENTATION/POSITION BABY A Presentation: Breech Breech Presentation: Complete PLACENTA INFORMATION BABY A Placenta Delivery Time : 03/28/2020 16:33 Placenta Method of Delivery: Manual Removal Placenta Status: Delivered SCORES BABY A Heart Rate 1 min: >100 bpm Resp Effort 1 min: Good Cry Reflex Irritability 1 min: Cough or Sneeze or Pulls Away Muscle Tone 1 min: Active Motion Color 1 min: Blue/Pale SCORE 1 MIN: 8 Heart Rate 5 min: >100 bpm Resp Effort 5 min: Good Cry Reflex Irritability 5 min: Cough or Sneeze or Pulls Away Muscle Tone 5 min: Active Motion Color 5 min: Body [place], Extremities Blue SCORE 5 MIN: 9 INFORMATION BABY A Gestational Age at Delivery: 36.0 Gestational Status: Late - 34- 36.6 Weeks Infant Outcome : Liveborn Condition : Stable Sex: Female IDENTIFICATION BABY A Verification Date/Time: 03/28/2020 17:15 ID Band Number: [id number] Mother's Name Verified: Yes RN Verifying Infant: Rainer Marshall ABHIJEET Additional Verifying Personnel: Belia Lu US WEIGHT/LENGTH BABY A Birthweight (gm): 2490 Weight (lb): 5 Weight (oz): 8 Infant Length (in): 18.75 Infant Length (cm): 47.63 CORD INFORMATION BABY A No. Cord Vessels: 3 Nuchal Cord : N/A Cord Blood Taken: Yes-For Storage (Mom's Blood type +) ASSESSMENT BABY A Infant Complications: None Physical Findings at Delivery: Within Normal Limits Infant Respirations: Appears Normal Skin to Skin: No Transferred To: Nursery BABY B INFORMATION Delivery Date/Time: 03/28/2020 16:33 Method of Delivery : Nurse Controlled Delivery: No Born in Route : No : N/A Forceps : N/A Vacuum Extraction: N/A Shoulder Dystocia : No SHOULDER DYSTOCIA BABY B Infant Delivery Date/Time: 03/28/2020 16:33 PRESENTATION/POSITION BABY B Presentation : Breech Breech Position: Complete ROM/PLACENTA INFO BABY B Rupture of Membranes: 03/28/2020 16:31 Length of Rupture (hr): 0.03 Placenta Delivery Time : 03/28/2020 16:33 Placenta Method of Delivery: Manual Removal Placental Status : Delivered SCORES BABY B Heart Rate 1 min: >100 bpm Resp Effort 1 min: Good Cry Reflex Irritability 1 min: Cough or Sneeze or Pulls Away Muscle Tone 1 min: Active Motion Color 1 min: Blue/Pale SCORE 1 MIN: 8 Heart Rate 5 min: >100 bpm Resp Effort 5 min: Good Cry Reflex Irritability 5 min: Cough or Sneeze or Pulls Away Muscle Tone 5 min: Active Motion Color 5 min: Body [place], Extremities Blue SCORE 5 MIN: 9 INFANT INFORMATION BABY B Gestational Age at Delivery: 36.0 Gestational Status : Late - 34- 36.6 Weeks Infant Outcome : Liveborn Infant Condition : Stable Infant Sex : Female IDENTIFICATION BABY B Infant Verification Date/Time: 03/28/2020 17:16 ID Band Number : [id number] Mother's Name Verified: Yes Infant RN Verifying Infant: B Baidy RN Additional Verifying Personnel: L Mitamichelle US WEIGHT/LENGTH BABY B Birthweight (gm): 2445 Weight (lb) : 5 Infant Weight (oz): 6 Infant Length (in): 18.50 Length (cm): 46.99 CORD INFORMATION BABY B No. Cord Vessels : 3 Nuchal Cord : N/A Cord Blood Taken : Yes-For Storage (Mom's Blood Type +) ASSESSMENT BABY B Complications : None Physical Findings at Delivery: Within Normal Limits Infant Respirations : Appears Normal Skin to Skin: No Transfer To: Nursery
[2020-03-28] MEDS ORDERED: MEPERIDINE HCL/PF INJ 25 MG/1 ML DISP.SYRIN ONE (19:30)
[2020-03-28] MEDS ORDERED: KETOROLAC TROMETHAMINE INJ/PF 30 MG/1 ML SDV IV SCH (22:00)
[2020-03-28] MEDS: DOCUSATE SODIUM 100 MG CAPSULE PO SCH (22:21)
[2020-03-29] MEDS: HYDROMORPHONE HCL INJ/PF 2 MG/ML AMPULE IV PRN ×2 (00:14→04:21)
[2020-03-29] MEDS ORDERED: KETOROLAC TROMETHAMINE INJ/PF 30 MG/1 ML SDV IV ONE ×2 (00:30→06:00)
[2020-03-29] MEDS ORDERED: IBUPROFEN 800 MG TABLET PO SCH ×2 (06:00)
[2020-03-29 06:42] LABS: HEMATOCRIT 25.3 % (36.0-47.0); MEAN CORPUSCULAR HEMOGLOBIN 30.8 pg (27.0-33.4); MEAN CORPUSCULAR HGB CONC 34.5 g/dL (32.0-36.0); MEAN CORPUSCULAR VOLUME 89 fl (80-97); PLATELET COUNT 155 10^3/uL (150-450); RED BLOOD COUNT 2.84 10^6/uL (3.72-5.28); RED CELL DISTRIBUTION WIDTH 13.3 % (11.5-14.0); WHITE BLOOD COUNT 9.4 10^3/uL (4.0-10.5)
[2020-03-29 06:47] LABS: HEMOGLOBIN 8.7 g/dL (12.0-15.5)
[2020-03-29] MEDS: DOCUSATE SODIUM 100 MG CAPSULE PO SCH ×2 (09:38→17:17)
[2020-03-29] MEDS: PRENATAL VITAMIN W DHA CAPSULE PO SCH (09:38)
[2020-03-29] MEDS: OXYCODONE-ACETAMINOPHEN 5-325 MG TABLET PO PRN ×4 (09:50→23:18)
--- NOTE | 2020-03-29 10:55 | PDOC PROGRESS REPORT ---
Subjective-OB Progress Note for:: 03/29/20 Subjective: reports bleeding slowing, pain controlled with current meds. denies needs. reports not passing gas but took simethicone 15 mins ago Physical Exam (OB) Vital Signs: Temp Pulse Resp BP Pulse Ox 98.3 F 75 18 114/59 L 98 03/29/20 08:11 03/29/20 08:11 03/29/20 08:11 03/29/20 08:11 03/29/20 08:11 Intake & Output 03/28/20 03/29/20 03/30/20 06:59 06:59 06:59 Intake Total 1500 Output Total 1550 300 Balance -50 -300 Weight 91.8 kg - Dressing Removed: Yes - Pressure dressing removed Incision: Open, Draining - minimal, no s/s infection, Well Approximated - Abdomen Description: Tender, Soft Hernia Present: No Fundal Description: Firm, Midline Fundal Height: u/u - u/2 - Abdominal Distension: No distension - Extremities Lower extremities: Amandeep's sign - neg Calf: Normal, Nontender Objective-Diagnostic Laboratory: 03/29/20 05:36 03/28/20 13:37 03/28/20 03/28/20 03/28/20 13:03 13:37 13:37 WBC 8.2 RBC 3.77 Hgb 11.7 L Hct 32.8 L MCV 87 MCH 30.9 MCHC 35.5 RDW 13.2 Plt Count 199 Seg Neutrophils % 71.1 Sodium 133.2 L Potassium 4.2 Chloride 107 Carbon Dioxide 22 Anion Gap 4 L BUN 5 L Creatinine 0.38 L Est GFR ( Amer) > 60 Glucose 73 L Uric Acid 3.9 Calcium 8.6 Total Bilirubin 0.2 AST 25 Alkaline Phosphatase 188 H Total Protein 5.8 L Albumin 3.0 L Urine Color STRAW Urine Appearance CLEAR Urine pH 7.0 Ur Specific [place] 1.006 Urine Protein NEGATIVE Urine Glucose (UA) NEGATIVE Urine Ketones NEGATIVE Urine Blood NEGATIVE Urine Nitrite NEGATIVE Ur Leukocyte Esterase NEGATIVE Urine WBC (Auto) 1 Blood Type Antibody Screen 03/28/20 03/29/20 13:37 05:36 WBC 9.4 RBC 2.84 L Hgb 8.7 L D Hct 25.3 L MCV 89 MCH 30.8 MCHC 34.5 RDW 13.3 Plt Count 155 Seg Neutrophils % Sodium Potassium Chloride Carbon Dioxide Anion Gap BUN Creatinine Est GFR ( Amer) Glucose Uric Acid Calcium Total Bilirubin AST Alkaline Phosphatase Total Protein Albumin Urine Color Urine Appearance Urine pH Ur Specific [place] Urine Protein Urine Glucose (UA) Urine Ketones Urine Blood Urine Nitrite Ur Leukocyte Esterase Urine WBC (Auto) Blood Type B POSITIVE Antibody Screen NEGATIVE Assessment and Plan(PN) - Assessment and Plan (1) Premature cervical dilation in third trimester Is this a current diagnosis for this admission?: Yes (2) Twin Is this a current diagnosis for this admission?: Yes (3) S/P primary low transverse Is this a current diagnosis for this admission?: Yes - Time Spent with Patient Time with patient: Less than 15 minutes - Disposition Anticipated Discharge: Home Within: within 48 hours
[2020-03-29] MEDS: IBUPROFEN 800 MG TABLET PO SCH ×3 (13:27→23:18)
[2020-03-29] MEDS: FERROUS SULFATE 325 MG TABLET PO SCH (17:17)
[2020-03-30] MEDS: OXYCODONE-ACETAMINOPHEN 5-325 MG TABLET PO PRN ×3 (03:29→13:44)
[2020-03-30] MEDS: IBUPROFEN 800 MG TABLET PO SCH ×2 (06:08→11:51)
[2020-03-30] MEDS: DOCUSATE SODIUM 100 MG CAPSULE PO SCH (09:57)
[2020-03-30] MEDS: PRENATAL VITAMIN W DHA CAPSULE PO SCH (09:57)
[2020-03-30] MEDS: FERROUS SULFATE 325 MG TABLET PO SCH (09:57)
--- NOTE | 2020-03-30 10:09 | PDOC DISCHARGE SUMMARY ---
Impression - Admit/DC Date/PCP Admission Date/Primary Care Provider: 03/28/20 13:41 MEGHAN PAREKH CNM Discharge Date: 03/30/20 - Discharge Diagnosis (1) Premature cervical dilation in third trimester Is this a current diagnosis for this admission?: Yes (2) Twin Is this a current diagnosis for this admission?: Yes (3) S/P primary low transverse Is this a current diagnosis for this admission?: Yes (4) Pre-eclampsia affecting childbirth Is this a current diagnosis for this admission?: Yes (5) Anemia associated with acute blood loss Is this a current diagnosis for this admission?: Yes - Additional Information Discharge Diet: Regular Discharge Activity: Balance Activity w/Rest, No Lifting/Push/Pulling, Pelvic Rest, No tub bath Referrals: MEGHAN PAREKH CNM [Primary Care Provider] - Prescriptions: Ibuprofen [Motrin 800 mg Tablet] 800 mg PO Q8HP PRN #90 tablet PRN Reason: Oxycodone HCl/Acetaminophen [Percocet 5-325 mg Tablet] 1 tab PO Q4HP PRN #30 tablet PRN Reason: Home Medications: Docusate Sodium [Colace 100 mg Capsule] 100 mg PO BID capsule 03/30/20 Ferrous Sulfate [Feosol 325 mg Tablet] 325 mg PO DAILY tablet 03/30/20 Ibuprofen [Motrin 800 mg Tablet] 800 mg PO Q8HP PRN #90 tablet 03/30/20 Oxycodone HCl/Acetaminophen [Percocet 5-325 mg Tablet] 1 tab PO Q4HP PRN #30 tablet 03/30/20 Vit/Dha [ Multi + Dha Capsule] 1 cap PO DAILY capsule 03/30/20 HPI Gestational Age: 35 Reason(s) for Admission: PIH, Twins Procedures: NST Intrapartum Procedure(s): : Low Cervical, Transverse Results Laboratory Results: WBC 9.4 10^3/uL (4.0-10.5) 03/29/20 05:36 RBC 2.84 10^6/uL (3.72-5.28) L 03/29/20 05:36 Hgb 8.7 g/dL (12.0-15.5) L D 03/29/20 05:36 Hct 25.3 % (36.0-47.0) L 03/29/20 05:36 MCV 89 fl (80-97) 03/29/20 05:36 MCH 30.8 pg (27.0-33.4) 03/29/20 05:36 MCHC 34.5 g/dL (32.0-36.0) 03/29/20 05:36 RDW 13.3 % (11.5-14.0) 03/29/20 05:36 Plt Count 155 10^3/uL (150-450) 03/29/20 05:36 Lymph % (Auto) 19.9 % (13-45) 03/28/20 13:37 [place] % (Auto) 8.5 % (3-13) 03/28/20 13:37 Eos % (Auto) 0.3 % (0-6) 03/28/20 13:37 Baso % (Auto) 0.2 % (0-2) 03/28/20 13:37 Absolute Neuts (auto) 5.8 10^3/uL (1.7-8.2) 03/28/20 13:37 Absolute Lymphs (auto) 1.6 10^3/uL (0.5-4.7) 03/28/20 13:37 Absolute Monos (auto) 0.7 10^3/uL (0.1-1.4) 03/28/20 13:37 Absolute Eos (auto) 0.0 10^3/uL (0.0-0.6) 03/28/20 13:37 Absolute Basos (auto) 0.0 10^3/uL (0.0-0.2) 03/28/20 13:37 Seg Neutrophils % 71.1 % (42-78) 03/28/20 13:37 Sodium 133.2 mmol/L (137-145) L 03/28/20 13:37 Potassium 4.2 mmol/L (3.6-5.0) 03/28/20 13:37 Chloride 107 mmol/L (98-107) 03/28/20 13:37 Carbon Dioxide 22 mmol/L (22-30) 03/28/20 13:37 Anion Gap 4 (5-19) L 03/28/20 13:37 BUN 5 mg/dL (7-20) L 03/28/20 13:37 Creatinine 0.38 mg/dL (0.52-1.25) L 03/28/20 13:37 Est GFR ( Amer) > 60 (>60) 03/28/20 13:37 Est GFR (MDRD) Non-Af > 60 (>60) 03/28/20 13:37 Glucose 73 mg/dL (75-110) L 03/28/20 13:37 Uric Acid 3.9 mg/dL (2.5-6.2) 03/28/20 13:37 Calcium 8.6 mg/dL (8.4-10.2) 03/28/20 13:37 Total Bilirubin 0.2 mg/dL (0.2-1.3) 03/28/20 13:37 Direct Bilirubin 0.0 mg/dL (0.0-0.4) 03/28/20 13:37 Neonat Total Bilirubin Not Reportable 03/28/20 13:37 Neonat Direct Bilirubin Not Reportable 03/28/20 13:37 Neonat Indirect Bili Not Reportable 03/28/20 13:37 AST 25 U/L (14-36) 03/28/20 13:37 ALT 24 U/L (<35) 03/28/20 13:37 Alkaline Phosphatase 188 U/L (38-126) H 03/28/20 13:37 Lactate Dehydrogenase 198 U/L (120-246) 03/28/20 13:37 Total Protein 5.8 g/dL (6.3-8.2) L 03/28/20 13:37 Albumin 3.0 g/dL (3.5-5.0) L 03/28/20 13:37 Urine Color STRAW 03/28/20 13:03 Urine Appearance CLEAR 03/28/20 13:03 Urine pH 7.0 (5.0-9.0) 03/28/20 13:03 Ur Specific Orange 1.006 03/28/20 13:03 Urine Protein NEGATIVE mg/dL (NEGATIVE) 03/28/20 13:03 Urine Glucose (UA) NEGATIVE mg/dL (NEGATIVE) 03/28/20 13:03 Urine Ketones NEGATIVE mg/dL (NEGATIVE) 03/28/20 13:03 Urine Blood NEGATIVE (NEGATIVE) 03/28/20 13:03 Urine Nitrite NEGATIVE (NEGATIVE) 03/28/20 13:03 Urine Bilirubin NEGATIVE (NEGATIVE) 03/28/20 13:03 Urine Urobilinogen NEGATIVE mg/dL (<2.0) 03/28/20 13:03 Ur Leukocyte Esterase NEGATIVE (NEGATIVE) 03/28/20 13:03 Urine WBC (Auto) 1 /HPF 03/28/20 13:03 Squamous Epi Cells Auto 1 /HPF 03/28/20 13:03 Urine Mucus (Auto) RARE /LPF 03/28/20 13:03 Urine Creatinine 31.4 mg/dL (16-327) 03/28/20 13:03 Protein/Creatinin Ratio 0.5 mg/mg (0.0-0.2) H 03/28/20 13:03 Urine Total Protein 14.9 mg/dL (<12) H 03/28/20 13:03 Urine Ascorbic Acid NEGATIVE (NEGATIVE) 03/28/20 13:03 Urine Opiates Screen NEGATIVE 03/28/20 13:03 Urine Methadone Screen NEGATIVE 03/28/20 13:03 Ur Barbiturates Screen NEGATIVE 03/28/20 13:03 Ur Phencyclidine Scrn NEGATIVE 03/28/20 13:03 Ur Amphetamines Screen NEGATIVE 03/28/20 13:03 U Benzodiazepines Scrn NEGATIVE 03/28/20 13:03 Urine Cocaine Screen NEGATIVE 03/28/20 13:03 U Marijuana (THC) Screen NEGATIVE 03/28/20 13:03 Blood Type B POSITIVE 03/28/20 13:37 Antibody Screen NEGATIVE 03/28/20 13:37 Plan Plan of Treatment: follow up in one week at [facility] for incision and BP check
[2020-03-30 11:13] VITALS: BP 132/68
== END 2020-03-30 15:04 | disposition home or self-care (01) | DRG 787 ==
LOC: LC 12:51 → LR 13:41 → 2S 19:53
PROVIDERS: ADMIT Obstetrics & Gynecology; ATTEND Obstetrics & Gynecology
PROC: 10D00Z1 Extraction of Products of Conception, Low, Open Approach (ICD-10-PCS; principal; 2020-03-28)
PROC: 3E0234Z Introduction of Serum, Toxoid and Vaccine into Muscle, Percutaneous Approach (ICD-10-PCS; 2020-03-30)
DX: O30.043 Twin pregnancy, dichorionic/diamniotic, third trimester (principal); D62 Acute posthemorrhagic anemia; O32.1XX1 Maternal care for breech presentation, fetus 1; O32.1XX2 Maternal care for breech presentation, fetus 2; O14.94 Unspecified pre-eclampsia, complicating childbirth; O13.4 Gestational [pregnancy-induced] hypertension without significant proteinuria, complicating childbirth; Z3A.36 36 weeks gestation of pregnancy; O90.81 Anemia of the puerperium; Z37.2 Twins, both liveborn; Z23 Encounter for immunization
CPT/HCPCS: 1961; 36415; 80053; 80307; 81001; 82570; 83615; 84156; 84550; 85025; 85027; 86592; 86850; 86900; 86901; 90715; 94799; J0131; J0690; J1170; J1885; J2175; J2250; J2370; J2405; J2590; J3010; J3490; J7120

== ENCOUNTER 2020-09-25 08:18 | Emergency (ER) | payer MEDICAID ==
[2020-09-25] MEDS ORDERED: KETOROLAC TROMETHAMINE INJ/PF 30 MG/1 ML SDV IV ONE (09:04)
[2020-09-25] MEDS ORDERED: NORMAL SALINE 1000 ML 1,000 ML IV ONE (09:04)
[2020-09-25 09:40] LABS: ABSOLUTE BASOPHILS # (AUTO) 0.1 10^3/uL (0.0-0.2); ABSOLUTE EOSINOPHILS # (AUTO) 0.1 10^3/uL (0.0-0.6); ABSOLUTE LYMPHOCYTES (AUTO) 2.1 10^3/uL (0.5-4.7); ABSOLUTE MONOCYTES (AUTO) 0.8 10^3/uL (0.1-1.4); ABSOLUTE NEUT (AUTO) 4.1 10^3/uL (1.7-8.2); BASOPHILS % (AUTO) 0.8 % (0-2); EOSINOPHILS % (AUTO) 1.4 % (0-6); HEMATOCRIT 35.7 % (36.0-47.0); HEMOGLOBIN 12.1 g/dL (12.0-15.5); LYMPHOCYTES % (AUTO) 29.6 % (13-45); MEAN CORPUSCULAR HEMOGLOBIN 29.8 pg (27.0-33.4); MEAN CORPUSCULAR HGB CONC 33.8 g/dL (32.0-36.0); MEAN CORPUSCULAR VOLUME 88 fl (80-97); MONOCYTES % (AUTO) 10.6 % (3-13); PLATELET COUNT 284 10^3/uL (150-450); RED BLOOD COUNT 4.05 10^6/uL (3.72-5.28); RED CELL DISTRIBUTION WIDTH 13.1 % (11.5-14.0); SEGMENTED NEUTROPHILS % (AUTO) 57.6 % (42-78); TOTAL CELLS COUNTED % (AUTO) 100 %; WHITE BLOOD COUNT 7.1 10^3/uL (4.0-10.5)
[2020-09-25 09:47] LABS: AMORPHOUS SEDIMENT,URINE TRACE /HPF; APPEARANCE,URINE CLOUDY; BILIRUBIN,URINE NEGATIVE (NEGATIVE); COLOR,URINE YELLOW; GLUCOSE, URINE NEGATIVE (NEGATIVE); KETONES,URINE NEGATIVE (NEGATIVE); LEUKOCYTE ESTERASE,URINE TRACE (NEGATIVE); NITRITE,URINE NEGATIVE (NEGATIVE); PROTEIN,URINE NEGATIVE (NEGATIVE); URINE SPECIFIC GRAVITY 1.016; UROBILINOGEN,URINE NEGATIVE mg/dL (<2.0)
--- NOTE | 2020-09-25 10:03 | ER Document Report ---
Entered by LIEN GARCIA SCRIBE 09/25/20 0907 Acting as scribe for:SUZANNE RUBALCAVA MD ED GI/ - General Chief Complaint: Epigastric Pain Stated Complaint: ABDOMINAL/BACK PAIN Time Seen by Provider: 09/25/20 08:52 Primary Care Provider: MEGHAN PAREKH CNM [Primary Care Provider] - Follow up as needed Mode of Arrival: Ambulatory Information source: Patient Notes: This 25 year old female patient presents to the ED today with complaints of intermittent epigastric and RUQ abdominal pain for the past x2 years, worse and more constant in the last x2 months. Patient reports pain after eating and states that it usually resolves after vomiting. She also reports back pain. She has not been seen by her PCP for this complaint. TRAVEL OUTSIDE OF THE [place] IN LAST 30 DAYS: No - Related Data Allergies/Adverse Reactions: No Known Allergies Allergy (Verified 09/25/20 08:42) Past Medical History - General Information source: Patient, [facility] Records - Social History Smoking Status: Unknown if Ever Smoked Smoking Education Provided: No Family History: Reviewed & Not Pertinent Past Surgical History: Reports: Hx Section - Immunizations Immunizations up to date: Yes Hx Diphtheria, Pertussis, Tetanus Vaccination: Yes Review of Systems - Review of Systems Constitutional: No symptoms reported EENT: No symptoms reported Cardiovascular: No symptoms reported Respiratory: No symptoms reported Gastrointestinal: See HPI, Abdominal pain, Vomiting Genitourinary: No symptoms reported Female Genitourinary: No symptoms reported Musculoskeletal: See HPI, Back pain Skin: No symptoms reported Hematologic/Lymphatic: No symptoms reported Neurological/Psychological: No symptoms reported -: Yes All other systems reviewed and negative Physical Exam - Vital signs Vitals: Temp Pulse Resp BP Pulse Ox 98.0 F 59 L 16 121/69 100 09/25/20 08:23 09/25/20 08:23 09/25/20 08:23 09/25/20 08:23 09/25/20 08:23 - General General appearance: Alert In distress: None - HEENT Head: Normocephalic, Atraumatic Eyes: Normal Pupils: PERRL - Respiratory Respiratory status: No respiratory distress Chest status: Nontender Breath sounds: Normal Chest palpation: Normal - Cardiovascular Rhythm: Regular Heart sounds: Normal auscultation Murmur: No - Abdominal Inspection: Normal Distension: No distension Bowel sounds: Normal Tenderness: Tender - Mild epigastric tenderness, mostly RUQ tenderness to palpation Organomegaly: No organomegaly - Back Back: Tender - Tenderness to palpation of right scapular back - Extremities General upper extremity: Normal inspection General lower extremity: Normal inspection. No: Edema - Neurological Neuro grossly intact: Yes Orientation: AAOx4 Saxis Coma Scale Eye Opening: Spontaneous Saxis Coma Scale Verbal: Oriented Kyleigh Coma Scale Motor: Obeys Commands Kyleigh Coma Scale Total: 15 - Psychological Associated symptoms: Normal affect, Normal mood - Skin Skin Temperature: Warm Skin Moisture: Dry Skin Color: Normal Course - Vital Signs Vital signs: Temp Pulse Resp BP Pulse Ox 98.0 F 59 L 16 121/69 100 09/25/20 08:23 09/25/20 08:23 09/25/20 08:23 09/25/20 08:23 09/25/20 08:23 - Laboratory Result Diagrams: 09/25/20 09:08 09/25/20 09:08 Laboratory results interpreted by me: 09/25/20 09/25/20 09:08 09:08 Hct 35.7 L Ur Leukocyte Esterase TRACE H - Diagnostic Test Radiology reviewed: Image reviewed, Reports reviewed - Gallbladder ultrasound showed borderline gallbladder wall thickening with no pericholecystic fluid. Negative sonographic Arriaza sign. Gallbladder contracted around multiple stones. Discharge - Discharge Clinical Impression: Cholelithiasis Qualifiers: Cholelithiasis location: gallbladder Cholecystitis presence: without cholecystitis Biliary obstruction: without biliary obstruction Qualified Code(s): K80.20 - Calculus of gallbladder without cholecystitis without obstruction Condition: Stable Disposition: HOME, SELF-CARE Additional Instructions: Gallbladder Disease Your evaluation shows evidence of gallbladder disease. The gallbladder is a pouch under the liver which stores bile. Stones, infection, or irritation of the gallbladder cause attacks of pain. Certain foods -- fats in particular -- may provoke attacks. The usual treatment for gallbladder disease is surgical removal of the gallbladder -- called a cholecystectomy. You will be referred to a physician qualified to advise you on the best treatment for your problem. Hospitalization is not necessary. Take clear liquids only until you are painfree. After that, you should stay on a low-fat diet, with frequent SMALL meals. Call the doctor or return at once if you develop severe pain, repeated vomiting, fever, or jaundice (a yellow color in the skin and whites of the eyes). Follow the instructions above to reduce attacks of gallbladder colic. Take the pain medication as dispensed and prescribed for severe pain when Tylenol and ibuprofen will not work. Follow-up with your primary care provider as needed Call [facility] next week to schedule an appointment to discuss having your gallbladder removed. RETURN TO THE EMERGENCY ROOM IF ANY NEW OR WORSENING SYMPTOMS. Prescriptions: Hydrocodone/Acetaminophen [[place] 5-325 mg Tablet] 1 tab PO ASDIR PRN #12 tablet PRN Reason: For Pain Referrals: MEGHAN PAREKH CNM [Primary Care Provider] - Follow up as needed [facility] [Provider Group] - Follow up in 1 week (Call next week to schedule an appointment in the next 1 to 2 weeks.) I personally performed the services described in the documentation, reviewed and edited the documentation which was dictated to the scribe in my presence, and it accurately records my words and actions.
[2020-09-25 10:08] LABS: ALBUMIN 4.5 g/dL (3.5-5.0); ALKALINE PHOSPHATASE 104 U/L (38-126); ANION GAP 10 (5-19); ASPARTATE AMINO TRANSFERASE 20 U/L (14-36); BILIRUBIN,TOTAL 0.3 mg/dL (0.2-1.3); BLOOD UREA NITROGEN 19 mg/dL (7-20); CALCIUM 10.2 mg/dL (8.4-10.2); CARBON DIOXIDE 26 mmol/L (22-30); CHLORIDE 104 mmol/L (98-107); GLUCOSE 84 mg/dL (75-110); POTASSIUM 4.4 mmol/L (3.6-5.0); TOTAL PROTEIN 7.3 g/dL (6.3-8.2)
--- NOTE | 2020-09-25 11:33 | RADIOLOGY REPORT (SQ) ---
EXAM DESCRIPTION: U/S ABDOMEN LIMITED W/O DOP IMAGES COMPLETED DATE/TIME: 09/25/2020 11:10 am REASON FOR STUDY: RUQ pain COMPARISON: None. TECHNIQUE: Dynamic and static grayscale images acquired of the abdomen and recorded on PACS. Additio nal selected color Doppler and spectral images recorded. LIMITATIONS: Midline bowel gas, body habitus FINDINGS: PANCREAS: Midline pancreas unremarkable LIVER: No masses. Echotexture normal. LIVER VASCULATURE: Normal directional flow of the main portal vein and hepatic veins. GALLBLADDER: Gallbladder is contracted around multiple shadowing stones creating a wall-echo -shadow complex. Borderline gallbladder wall thickening, 3 mm. No gross pericholecystic fluid. ULTRASOUND-DETECTED ARRIAZA'S SIGN: Negative. INTRAHEPATIC DUCTS AND COMMON DUCT: CBD and intrahepatic ducts normal caliber. No filling defects. D istal most common duct not well seen due to duodenum gas INFERIOR VENA CAVA: Normal flow. AORTA: No aneurysm. RIGHT KIDNEY: Normal size. Normal echogenicity. No solid or suspicious masses. No hydronephrosis. No calcifications. PERITONEAL AND RIGHT PLEURAL SPACE: No ascites or effusions. OTHER: No other significant findings. IMPRESSION: Gallbladder is contracted around multiple stones. Borderline gallbladder wall thickening. No pericholecystic fluid. Negative sonographic Arriaza's sig n TECHNICAL DOCUMENTATION: JOB ID: [id number] 2010 [employer]- All Rights Reserved Reading location - IP/workstation name: [email or web address]
[2020-09-25] MEDS ORDERED: HYDROCODONE/ACETAMINOPHEN 5-325 MG (6 TAB/ER DISP) PO PRN (12:39)
[2020-09-25 13:13] VITALS: BP 122/71
== END 2020-09-25 13:13 | disposition home or self-care (01) ==
LOC: ER 08:18
DX: K80.20 Calculus of gallbladder without cholecystitis without obstruction (principal); R10.11 Right upper quadrant pain; R10.13 Epigastric pain; R11.10 Vomiting, unspecified; R10.811 Right upper quadrant abdominal tenderness; R10.816 Epigastric abdominal tenderness; M54.9 Dorsalgia, unspecified
CPT/HCPCS: 99285; 96361; 96374; 36415; 83690; 84703; 85025; 80053; 81001; 76705; J1885; J7030